=== PATIENT | female | born 1960 | race Caucasian/White ===

== ENCOUNTER → 2018-12-10 10:47 | Outpatient (CLI) | payer OTHER, SELFPAY ==
[2018-12-10 09:47] VITALS: BMI 29.0
[2018-12-10 12:44] LABS: Microalbumin:Creatinine Ratio 10.2 mg/g CRE (<30 mg/g CRE)
== END ==
PROVIDERS: Family Provider Internal Medicine; PCP Internal Medicine; Visit Provider Internal Medicine
DX: E11.9 Type 2 diabetes mellitus without complications (principal)
CPT/HCPCS: 82043; 82570

== ENCOUNTER → 2019-01-11 07:07 | Outpatient (CLI) | payer OTHER, SELFPAY ==
[2018-12-10 09:47] VITALS: BMI 29.0
[2019-01-07 08:29] VITALS: BMI 29.0
--- NOTE | 2019-01-11 07:22 | BI_ITS ---
MAMMOGRAPHY - BILATERAL SCREENING 3-D KATIE SYNTHESIS REASON FOR EXAM: Female, 58 years old. Bilateral Screening 3-D tomosynthesis PERTINENT HISTORY: History of left excisional biopsy in 2007. History of the left breast aspiration. History of stereotactic biopsy. TECHNIQUE: 2-D mammograms and 3-D Katie synthesis of the breast (s) were performed. CAD was performed. COMPARISON: October 25, 2017, October 19, 2016 FINDINGS: The breast composition is composed of scattered fibroglandular density. Scattered benign calcifications are stable. No dense spiculated masses or suspicious microcalcifications are identified. No architectural distortion is identified. There is no skin thickening or retraction. There has been no significant change since the prior study. BI/SCREENING MAMM (CAD), BILAT IMPRESSION: No mammographic signs of malignancy. Routine yearly mammograms recommended. ASSESSMENT CATEGORY: BIRADS Category 2: Benign. A letter regarding these results will be sent to the patient by the facility within 30 days. FOLLOW UP RECOMMENDATION: Yearly follow up mammogram recommended. (A) Approximately 10% of breast cancers are not detected by mammography. A normal mammogram should not delay biopsy of a clinically suspicious abnormality. Electronically Signed: Juan M Terrazas MD at 17:27 EDT , Service support ,
== END ==
PROVIDERS: Family Provider Internal Medicine; PCP Internal Medicine; Referring Provider Internal Medicine; Visit Provider Internal Medicine
DX: Z12.31 Encounter for screening mammogram for malignant neoplasm of breast (principal)
CPT/HCPCS: 77063; 77067

== ENCOUNTER 2019-01-15 10:19 | Outpatient (RCR) | payer OTHER, SELFPAY ==
[2018-12-10 09:47] VITALS: BMI 29.0
[2019-01-07 08:29] VITALS: BMI 29.0
== END 2019-01-20 23:59 ==
LOC: DC 10:19
PROVIDERS: Family Provider Internal Medicine; PCP Internal Medicine; Visit Provider Internal Medicine
DX: E11.9 Type 2 diabetes mellitus without complications (principal); Z71.3 Dietary counseling and surveillance
CPT/HCPCS: 97802

== ENCOUNTER 2019-01-31 08:00 | Outpatient (RCR) | payer OTHER, SELFPAY ==
[2019-01-07 08:29] VITALS: BMI 29.0
== END 2019-02-19 23:59 ==
LOC: DC 08:00
PROVIDERS: Family Provider Internal Medicine; PCP Internal Medicine; Visit Provider Internal Medicine
DX: E11.9 Type 2 diabetes mellitus without complications (principal); Z71.3 Dietary counseling and surveillance
CPT/HCPCS: 97803; G0108

== ENCOUNTER 2019-03-05 12:57 | Outpatient (RCR) | payer OTHER, SELFPAY ==
[2019-01-07 08:29] VITALS: BMI 29.0
[2019-02-21 16:53] VITALS: BMI 29.0
== END 2019-03-22 23:59 ==
LOC: DC 12:57
PROVIDERS: Family Provider Internal Medicine; PCP Internal Medicine; Visit Provider Internal Medicine
DX: E11.9 Type 2 diabetes mellitus without complications (principal); Z71.3 Dietary counseling and surveillance
CPT/HCPCS: 97803

== ENCOUNTER 2019-04-16 17:06 | Outpatient (RCR) | payer OTHER, SELFPAY ==
[2019-02-21 16:53] VITALS: BMI 29.0
== END 2019-04-21 23:59 ==
LOC: DC 17:06
PROVIDERS: Family Provider Internal Medicine; PCP Internal Medicine; Visit Provider Internal Medicine
DX: E11.9 Type 2 diabetes mellitus without complications (principal); Z71.3 Dietary counseling and surveillance
CPT/HCPCS: 97803

== ENCOUNTER 2019-05-23 13:25 | Outpatient (RCR) | payer OTHER, SELFPAY ==
[2019-02-21 16:53] VITALS: BMI 29.0
[2019-05-02 13:03] VITALS: BMI 29.0
== END 2019-05-23 23:59 | disposition home or self-care (01) ==
LOC: DC 13:25
PROVIDERS: Family Provider Internal Medicine; PCP Internal Medicine; Visit Provider Internal Medicine
DX: E11.9 Type 2 diabetes mellitus without complications (principal); Z71.3 Dietary counseling and surveillance
CPT/HCPCS: G0109

== ENCOUNTER → 2019-05-28 12:04 | Outpatient (CLI) | payer OTHER, SELFPAY ==
[2019-05-27 13:40] VITALS: BMI 29.0
[2019-05-28 12:09] LABS: Mucous, Urine 0 SEEN /hpf (<or=2+); Red Blood Cells-Urine 0 SEEN /hpf (0-5)
[2019-05-28 12:15] LABS: Color, Urine Straw (Yellow); Glucose, Dipstick Normal (Normal); Ketone-Dipstick Negative (Negative); Leukocyte Esterase-Dipstick 500 /ul (Negative); Nitrite-Dipstick Negative (Negative); Occult Blood-Urine 25 /ul (Negative); Protein-Dipstick 100 mg/dl (Negative); Specific Gravity, Urine 1.015 (1.002-1.030); Urine Bilirubin Dipstick Negative (Negative); Urine Clarity Sl. Cloudy (Clear); Urine Urobilinogen Normal (Normal); Urine pH 6.5 (5.0 - 8.0)
[2019-05-28 12:26] LABS: Bacteria 2+ /hpf (None Seen); Squamous Epithelial Cells - UA 0-5 SEEN /hpf (5-10); White Blood Cells 0-5 SEEN /hpf (0-5)
== END ==
PROVIDERS: Family Provider Internal Medicine; PCP Internal Medicine; Referring Provider Internal Medicine; Visit Provider Internal Medicine
DX: N39.0 Urinary tract infection, site not specified (principal); R10.819 Abdominal tenderness, unspecified site
CPT/HCPCS: 81001; 87086

== ENCOUNTER → 2019-11-27 16:32 | Outpatient (CLI) | payer OTHER, SELFPAY ==
[2019-11-27 13:24] VITALS: BMI 29.0
== END ==
PROVIDERS: PCP Internal Medicine; Referring Provider Nurse Practitioner Women's Health; Visit Provider Nurse Practitioner Women's Health
DX: N89.8 Other specified noninflammatory disorders of vagina (principal)
CPT/HCPCS: 87070; 87205

== ENCOUNTER → 2019-12-02 09:20 | Outpatient (CLI) | payer OTHER, SELFPAY ==
[2019-12-02 08:58] VITALS: BMI 22.2
[2019-12-02 12:16] LABS: Absolute Lymphocyte Count 1.43 X10^3/uL (0.83-4.51); Absolute Neutrophil Count 2.7 X10^3/uL (2.0-7.7); Basophil# 0.03 X10^3/uL; Basophil% 0.7 % (0-1); Eosinophil# 0.09 X10^3/uL; Hematocrit 43.7 % (37-47); Hemoglobin 14.3 g/dL (12.0-15.0); Lymphocyte # 1.43 X10^3/ul (4.0); Lymphocyte % 31.6 % (19-41); Mean Corp Hgb Conc 32.7 g/dL (32-36); Mean Corpuscular Hgb 29.2 pg (27.0-32.0); Mean Corpuscular Volume 89.4 fL (81-99); Mean Platelet Vol. 11.8 fl (6.2-12.0); Monocyte# 0.31 X10^3/uL; Monocyte% 6.8 % (0-10); NRBC Flagged by Analyzer 0 % (0-5); Neutrophil # 2.66 X10^3/uL (2.7-7.7); Neutrophil % 58.7 % (47-70); Platelet Count 171 K/mm3 (150-450); RBC Distribution Width CV 12.6 % (11.6-14.6); RBC Distribution Width SD 41.1 fl (35.1-43.9); Red Blood Count 4.89 M/mm3 (4.2-5.4); White Blood Count 4.5 K/mm3 (4.4-11.0)
[2019-12-02 12:28] LABS: ALB/GLOB Ratio 1.2 RATIO (0.9-2.4); AST(SGOT) 15 U/L (15-37); Alanine Aminotransfer ALT/SGPT 27 U/L (13-56); Alkaline Phosphatase 86 U/L (45-117); Anion Gap 6 (5-15); BUN 24 mg/dL (7-18); BUN/Creat Ratio 27.5 RATIO (10-20); Calcium,Total 9.5 mg/dL (8.5-10.1); Chloride 105 mmol/L (98-107); Cholesterol 198 mg/dL (200); Creatinine, Serum 0.87 mg/dL (0.55-1.02); EST Glomerular Filtration Rate 70 mL/min (>60); Est Glom Filt Rate - Afr Amer 85 mL/min (>60); Globulin 3.2 g/dL (2.2-4.2); Glucose 88 mg/dL (74-106); High Density Lipoprotein 74 mg/dL; Potassium 3.9 mmol/L (3.5-5.1); Protein, Total 7.2 g/dL (6.4-8.2); Sodium Level 140 mmol/L (136-145); Triglycerides 120 mg/dL; Very Low Density Lipoprotein 24 mg/dL (5-40)
== END ==
PROVIDERS: PCP Internal Medicine; Referring Provider Internal Medicine; Visit Provider Internal Medicine
DX: E11.9 Type 2 diabetes mellitus without complications (principal)
CPT/HCPCS: 36415; 80053; 80061; 85025

== ENCOUNTER → 2020-05-25 08:39 | Outpatient (CLI) | payer OTHER, SELFPAY ==
[2019-11-27 13:24] VITALS: BMI 29.0
[2020-03-12 14:38] VITALS: BMI 29.0
--- NOTE | 2020-05-25 08:41 | BI_ITS ---
MAMMOGRAPHY - BILATERAL SCREENING REASON FOR EXAM: Female, 60 years old. Routine annual screening examination. PERTINENT HISTORY: Aunt with breast cancer. Remote left stereotactic and left excisional breast biopsy. TECHNIQUE: Digital bilateral breast katie (3D mammographic acquisition) in the CC and MLO projections. 2-D mediolateral oblique (MLO) and craniocaudad (CC) views of both breasts were obtained. CAD: Full Field Digital Mammography with Computer Added Detection was performed. COMPARISON: Comparison is made with prior examination 01/11/2019 and 10/25/2017. FINDINGS: Breast Composition: The breasts are heterogeneously dense, which may obscure small masses. There are no dominant masses or suspicious calcifications. No other significant abnormalities are identified. There has been no significant change since the prior study. BI/SCREEN MAMM (CAD) W/KATIE BILAT IMPRESSION: Stable bilateral screening mammogram. Yearly follow-up mammogram recommended. (A) ASSESSMENT CATEGORY: BIRADS Category 1: Negative. A letter regarding these results will be sent to the patient by the facility within 30 days. Approximately 10% of breast cancers are not detected by mammography. A normal mammogram should not delay biopsy of a clinically suspicious abnormality. [id number] Electronically Signed: Taj Dhaliwal, at 10:13 EDT , Service support ,
== END ==
LOC: OPBI 08:41
PROVIDERS: PCP Internal Medicine; Referring Provider Nurse Practitioner Women's Health; Visit Provider Nurse Practitioner Women's Health
DX: Z12.31 Encounter for screening mammogram for malignant neoplasm of breast (principal)
CPT/HCPCS: 77063; 77067

== ENCOUNTER → 2020-07-17 16:54 | Outpatient (CLI) | payer OTHER, SELFPAY ==
[2020-07-17 13:05] VITALS: BMI 29.0
== END ==
PROVIDERS: PCP Internal Medicine; Referring Provider Obstetrics & Gynecology; Visit Provider Obstetrics & Gynecology
DX: R39.15 Urgency of urination (principal); N98.9 Complication associated with artificial fertilization, unspecified
CPT/HCPCS: 87070; 87086; 87205

== ENCOUNTER 2021-12-28 07:05 | Outpatient (CLI) | payer OTHER, SELFPAY ==
--- NOTE | 2021-12-28 07:08 | BI_ITS ---
MAMMOGRAPHY - BILATERAL SCREENING REASON FOR EXAM: Female, 61 years old. Routine annual screening examination. PERTINENT HISTORY: Aunt with breast cancer. Remote left excisional breast biopsy and left stereotactic breast biopsy. TECHNIQUE: Digital bilateral breast katie (3D mammographic acquisition) in the CC and MLO projections. 2-D mediolateral oblique (MLO) and craniocaudad (CC) views of both breasts were obtained. CAD: Full Field Digital Mammography with Computer Added Detection was performed. COMPARISON: Comparison is made with prior study 05/25/2020 and 01/11/2019. FINDINGS: Breast Composition: The breasts are heterogeneously dense, which may obscure small masses. There are no dominant masses or suspicious calcifications. No other significant abnormalities are identified. There has been no significant change since the prior study. BI/SCRN MAMM (CAD)W/KATIE BILAT IMPRESSION: Stable bilateral screening mammogram. Yearly follow-up mammogram recommended. (A) ASSESSMENT CATEGORY: BIRADS Category 1: Negative. A letter regarding these results will be sent to the patient by the facility within 30 days. Approximately 10% of breast cancers are not detected by mammography. A normal mammogram should not delay biopsy of a clinically suspicious abnormality. [id number] Electronically Signed: Taj Dhaliwal MD at 8:10 EST ,
== END 2021-12-28 23:59 | disposition home or self-care (01) ==
LOC: OPBI 07:06
PROVIDERS: PCP Internal Medicine; Visit Provider Internal Medicine
DX: Z12.31 Encounter for screening mammogram for malignant neoplasm of breast (principal)
CPT/HCPCS: 77063; 77067

== ENCOUNTER 2022-01-19 05:24 | Day surgery (SDC) | payer OTHER, SELFPAY ==
[2022-01-19 06:00] VITALS: BP 96/73; PULSE 74; RESP 16; TEMP 36.8; O2SAT 100; BMI 23.3
[2022-01-19] MEDS: Lactated Ringers 1,000 ML 15 ML IV (06:10)
--- NOTE | 2022-01-19 06:31 | PCM.HP.BLA ---
History and Physical Date of Admission: 01/19/22 HPI Chief Complaint: Follow-up chronic medical conditions Details: ABBY DARBY, is a 61 F who presents today for a surveillance colonoscopy. She has had 2 other colonoscopies in the past and she has had adenomatous polyps found previously and removed. She is not having any abdominal pain at this time. She is not having any nausea, vomiting, diarrhea. She is not having any chest pain or shortness of breath. She has no bleeding per rectum. Overall she is in a good state of health. Medical History Colon cancer screening Diabetes type 2, controlled Health care maintenance History of hemorrhoids History of kidney stones Hyperlipidemia Normal colonoscopy Surgical History History of appendectomy History of breast biopsy History of orthopedic surgery Family History Father Myocardial infarction Mother Myocardial infarction, Onset Age: 67 Brother Myocardial infarction, Onset Age: 45 Aunt Cancer Grandfather Diabetes HPI HPI Chief Complaint: Follow-up chronic medical conditions Details: ABBY DARBY, is a 61 F who presents to the office today for follow-up of her chronic medical conditions. No acute concerns at this time. History of diabetes mellitus type 2, recently had blood work done at work and her A1c came up from 5.7-5.9. Currently on Metformin which she reports compliance with. She states that she knows she can do better with her diet. Denies numbness or tingling in extremities. No visual changes. Last colon cancer screening over 5 years ago and a 5-year follow-up was recommended due to polyps. She denies weight changes or dark or bloody stool. Mammogram is also due. Menopause was at age 56, no known family history of osteoporosis. No recent fractures. Has received her flu and Covid vaccines. ROS Const Constitutional: No body ache, chills, excessive sweating, fatigue, fever(s), frequent falls, headache(s), snoring, weakness, weight change, sleep problems or change in appetite Eyes Eyes: No blurry vision, change in vision, eye pain or Light sensitivity ENT ENT: No abnormal hearing, ear or mastoid pain, tinnitus, nasal congestion, headache(s), neck pain or sore throat Resp Respiratory: No cough, shortness of breath, snoring or wheezing Cardio Cardiology: No chest pain at rest, chest pain with exertion, excessive sweating, shortness of breath, dyspnea on exertion, lightheadedness, orthopnea or palpitations Gastro GI: No abdominal pain, change in bowel habits, constipation, cramping, diarrhea, nausea/dyspepsia or vomiting Genitourinary-Female: No burning urination, painful urination, urinary incontinence, urinary frequency, abnormal vaginal bleeding or pelvic pain Musc Musculoskeletal: No abnormal gait, joint pain, back pain, limited range of motion, muscle weakness, neck pain, numbness or tingling Skin Skin: No dry skin, redness, lesions, itchy eyes, rash or wounds Neuro Neurology: No abnormal gait, abnormal hearing, abnormal speech, dizziness, weakness, frequent falls, headache(s), memory loss, numbness or tingling Psych Psychiatric: No anxiety, No change in appetite, No depression, No memory loss and No Thoughts of harming yourself/Others Endo Endocrine: No cold intolerance, excessive sweating, fatigue, flushing, heat intolerance, increased thirst/drinking or increased hunger Aller/Imm Allergy/Immunologic: No itchy eyes, seasonal allergy symptoms, hives or wheezing Rodriguez/Lymp Hematologic/Lymphatic: No easy bleeding, easy bruising or enlarged lymph nodes Exam Const General: cooperative, comfortable and no acute distress Orientation: alert, awake and oriented x3 [facility] Head: normal to inspection, normocephalic and atraumatic Ears: hearing grossly normal bilaterally Neck Neck: normal visual inspection, full ROM, no lymphadenopathy and supple Neck mass: No Thyroid: thyroid normal Resp Effort & Inspection: normal respiratory effort and able to speak in complete sentences Auscultation: Bilateral: Clear to Auscultation Cardio Rate: regular rate Rhythm: regular rhythm Heart Sounds: S1 normal and S2 normal GI Palpation: soft (Nontender, no palpable organomegaly) Neuro General: patient alert, patient awake, patient oriented x3, moves all extremities and CN's II-XI intact bilaterally Extrem General: no clubbing, cyanosis or edema Psych Appearance: grossly normal Mental Status: mental status grossly normal Mood: congruent mood Affect: normal affect Assessment and Plan (1) surveillance colonoscopy. She will undergo colonoscopy for her history of adenomatous polyps. She was explained alternatives, risk, benefits including not withstanding bleeding, infection, sepsis, perforation, need for emergent . She will have an ASA of 1.
[2022-01-19 07:01] VITALS: BP 101/67; BP 96/73; PULSE 70; RESP 16; TEMP 36.2; O2SAT 100
--- NOTE | 2022-01-19 07:01 | OP.COLON_ITS ---
Patient Name: Venice Hdez Procedure Date: 01/19/2022 6:19 AM Date of : 1960 Age: 61 Procedure: Colonoscopy Indications: Follow-up for history of adenomatous polyps in the colon Providers: George Romano DO Medicines: See the Anesthesia note for documentation of the administered medications Patient Profile: This is a 61 year old female. Refer to note in patient chart for documentation of history and physical. Last Colonoscopy: 5 years ago. Complications: No immediate complications. Procedure: Pre-Anesthesia Assessment: - Prior to the procedure, a History and Physical was performed, and patient medications and allergies were reviewed. The risks and benefits of the procedure and the sedation options and risks were discussed with the patient. All questions were answered and informed consent was obtained. Patient identification and proposed procedure were verified by the physician in the pre-procedure area. Mental Status Examination: alert and oriented. Airway Examination: normal oropharyngeal airway and neck mobility. Respiratory Examination: clear to auscultation. CV Examination: normal. Prophylactic Antibiotics: The patient does not require prophylactic antibiotics. Prior Anticoagulants: The patient has taken no previous anticoagulant or antiplatelet agents. ASA Grade Assessment: II - A patient with mild systemic disease. After reviewing the risks and benefits, the patient was deemed in satisfactory condition to undergo the procedure. The anesthesia plan was to use moderate sedation / analgesia (conscious sedation). Immediately prior to administration of medications, the patient was re-assessed for adequacy to receive sedatives. The heart rate, respiratory rate, oxygen saturations, blood pressure, adequacy of pulmonary ventilation, and response to care were monitored throughout the procedure. The physical status of the patient was re-assessed after the procedure. After I obtained informed consent, the scope was passed under direct vision. Throughout the procedure, the patient's blood pressure, pulse, and oxygen saturations were monitored continuously. The Colonoscope was introduced through the anus and advanced to the cecum, identified by appendiceal orifice and ileocecal valve. The colonoscopy was performed without difficulty. The patient tolerated the procedure well. The quality of the bowel preparation was good. Moderate Sedation: Moderate (conscious) sedation was administered by the endoscopy nurse and supervised by the endoscopist. The patient's oxygen saturation, heart rate, blood pressure and response to care were monitored. Total physician intraservice time was 15 minutes. Scope In: 6:40:14 AM Scope Withdrawal Time 0 hours 11 minutes 19 seconds Scope Out: 6:55:54 AM Total Procedure Duration Time 0 hours 15 minutes 40 seconds Findings: The perianal and digital rectal examinations were normal. A few small-mouthed diverticula were found in the recto-sigmoid colon and sigmoid colon. The exam was otherwise without abnormality on direct and retroflexion views. Impression: - Diverticulosis in the recto-sigmoid colon and in the sigmoid colon. - The examination was otherwise normal on direct and retroflexion views. - No specimens collected. Recommendation: - Discharge patient to home. - Resume previous diet. - Continue present medications. -Repeat colonoscopy in 5 years - Repeat colonoscopy in 5 years for surveillance. Procedure Code(s): --- Professional --- 58744, Colonoscopy, flexible; diagnostic, including collection of specimen(s) by brushing or washing, when performed (separate procedure) 03693, 58, Moderate sedation services provided by the same physician or other qualified health career development specialist performing the diagnostic or therapeutic service that the sedation supports, requiring the presence of an independent trained observer to assist in the monitoring of the patient's level of consciousness and physiological status; initial 15 minutes of intraservice time, patient age 5 years or older CPT copyright 2017 [employer]. All rights reserved. The codes documented in this report are preliminary and upon computer language coder review may be revised to meet current compliance requirements. George Romano DO 01/19/2022 7:01:24 AM This report has been signed electronically. Number of Addenda: 1 Note Initiated On: 01/19/2022 6:19 AM Addendum Number: 1 Addendum Date: 07/20/2022 6:17:34 AM MAC was used as sedation for this procedure. George Romano DO 07/20/2022 6:17:39 AM This report has been signed electronically.
--- NOTE | 2022-01-19 07:02 | OP.CCLET_ITS ---
07/20/2022 Jessica Gage MD [address] [place] [address] [place] [address] Re : Colonoscopy procedure for Venice Hdez Dear Dr. Gage This procedure was performed on Wednesday, January 19, 2022. My impressions and recommendations are as follows: Impressions : - Diverticulosis in the recto-sigmoid colon and in the sigmoid colon. - The examination was otherwise normal on direct and retroflexion views. - No specimens collected. Recommendations : - Discharge patient to home. - Resume previous diet. - Continue present medications. -Repeat colonoscopy in 5 years - Repeat colonoscopy in 5 years for surveillance. My findings are described in the full procedure note, which is enclosed. If I can be of further assistance, please feel free to contact me at . Sincerely, George Romano, 01/19/2022 7:01:24 AM This report has been signed electronically.
[2022-01-19 07:05] VITALS: BP 105/66; BP 96/73; PULSE 67; RESP 16; O2SAT 100
[2022-01-19 07:11] VITALS: BP 105/68; BP 96/73; PULSE 63; RESP 16; O2SAT 100
[2022-01-19 07:11] LABS: Bedside Glucose 84 mg/dL (74-106)
[2022-01-19 07:16] VITALS: BP 105/68; BP 96/73; PULSE 62; RESP 16; TEMP 36.7; O2SAT 100
[2022-01-19 07:29] VITALS: BP 96/73
== END 2022-01-19 23:59 | disposition home or self-care (01) ==
LOC: EN 05:26 → AC 05:26
PROVIDERS: PCP Internal Medicine; Referring Provider Internal Medicine; Visit Provider Internal Medicine Gastroenterology
PROC: 0DJD8ZZ Inspection of Lower Intestinal Tract, Via Natural or Artificial Opening Endoscopic (ICD-10-PCS; CPT 45378; principal; 2022-01-19 06:25)
DX: Z12.11 Encounter for screening for malignant neoplasm of colon (principal); E11.9 Type 2 diabetes mellitus without complications; K57.30 Diverticulosis of large intestine without perforation or abscess without bleeding; Z79.84 Long term (current) use of oral hypoglycemic drugs; Z86.010 Personal history of colon polyps; Z78.0 Asymptomatic menopausal state
CPT/HCPCS: 45378; 82962; J7120

== ENCOUNTER → 2022-10-19 | Outpatient (CLI) | payer SELFPAY ==
--- NOTE | 2022-10-19 11:21 | BD_ITS ---
STUDY: DUAL ENERGY X-RAY ABSORPTIOMETRY / DXA REASON FOR EXAM: Female, 62 years old. Post Menopausal TECHNIQUE: Bone Mineral Density (BMD) measurements of lumbar spine and bilateral hips were obtained. COMPARISON: None. FINDINGS: Lumbar Spine (L1-L4): g/cm2 (0.750) / T-score (-2.7) / Z-score (-1.0) Findings are suggestive of osteoporosis with a high fracture risk. Left Femur Total: g/cm2 (0.736) / T-score (-1.7) / Z-score (-0.6) Left Femoral Neck: g/cm2 (0.687) / T-score (-1.5) / Z-score (0.0) Right Femur Total: g/cm2 (0.722) / T-score (-1.8) / Z-score (-0.7) Right Femoral Neck: g/cm2 (0.649) / T-score (-1.8) / Z-score (-0.4) BD/Dexa Bone Density Study IMPRESSION: The patient is considered osteoporotic as outlined below according to World Randall Organization (WHO) criteria with a high fracture risk. Reference Information: The T-score is the number of standard deviations above or below the standard which is normal for young adults at their peak bone mineral density. The World Health Organization (WHO) interprets the T-scores as follows: Above -1 Normal bone density Between -1 and -2.5 Osteopenia Equal to / or below -2.5 Osteoporosis As a practical clinical guideline, osteopenia may be graded as follows: Mild -1 through -1.5 Moderate -1.6 through -2.0 Severe -2.1 through -2.4 The Z-score is the number of standard deviations above or below age-matched controls. A Z-score of less than -1.5 would be considered abnormal. References: 1. NIH Osteoporosis and Related Bone Diseases www osteo.org 2. International Society for Clinical Densitometry www iscd.org 3. National Osteoporosis Foundation www nof.org Electronically Signed: Taj Dhaliwal MD at 15:26 EST ,
== END | disposition home or self-care (01) ==
PROVIDERS: PCP Internal Medicine; Referring Provider Internal Medicine; Visit Provider Internal Medicine
DX: Z78.0 Asymptomatic menopausal state (principal); M81.0 Age-related osteoporosis without current pathological fracture
CPT/HCPCS: 77080

== ENCOUNTER → 2023-03-29 | Outpatient (CLI) | payer OTHER, SELFPAY ==
--- NOTE | 2023-03-29 14:41 | BI_ITS ---
MAMMOGRAPHY - BILATERAL SCREENING REASON FOR EXAM: Female, 62 years old. Routine annual screening examination. PERTINENT HISTORY: Sister with breast cancer. Prior left excisional breast biopsy. Aunt with breast cancer. TECHNIQUE: Digital bilateral breast katie (3D mammographic acquisition) in the CC and MLO projections. 2-D mediolateral oblique (MLO) and craniocaudad (CC) views of both breasts were obtained. CAD: Full Field Digital Mammography with Computer Added Detection was performed. COMPARISON: Comparison is made with prior study December 28, 2021 and May 25, 2020. FINDINGS: Breast Composition: The breasts are heterogeneously dense, which may obscure small masses. There are no dominant masses or suspicious calcifications. No other significant abnormalities are identified. There has been no significant change since the prior study. BI/SCRN MAMM (CAD)W/KATIE BILAT IMPRESSION: Stable bilateral screening mammogram. Yearly follow-up mammogram recommended. (A) ASSESSMENT CATEGORY: BIRADS Category 1: Negative. A letter regarding these results will be sent to the patient by the facility within 30 days. Approximately 10% of breast cancers are not detected by mammography. A normal mammogram should not delay biopsy of a clinically suspicious abnormality. [id number] Electronically Signed: Taj Dhaliwal MD at 8:17 EDT ,
== END | disposition home or self-care (01) ==
LOC: OPBI 14:39
PROVIDERS: PCP Internal Medicine; Referring Provider Internal Medicine; Visit Provider Internal Medicine
DX: Z12.31 Encounter for screening mammogram for malignant neoplasm of breast (principal)
CPT/HCPCS: 77063; 77067

== ENCOUNTER → 2023-04-06 | Outpatient (CLI) | payer OTHER, SELFPAY ==
--- NOTE | 2023-04-06 08:46 | US_ITS ---
STUDY: ABDOMINAL ULTRASOUND - RIGHT UPPER QUADRANT REASON FOR VISIT: Female, 62 years old. RUQ pain. TECHNIQUE: Ultrasound evaluation of the right upper quadrant was performed with real-time and static colbert-scale imaging. TECHNICAL QUALITY: Adequate. COMPARISON: CT the abdomen pelvis, November 16, 2015. FINDINGS: Liver: The liver measures 15.2 cm. There is normal echogenicity of the liver. The bile ducts are within normal limits. There is hepatic color flow. The direction of portal flow is hepatopetal. There is no demonstrated mass lesion. Gallbladder: Normal distended gallbladder. The gallbladder wall measures 2 mm. There is a negative sonographic Ventura''s sign. There is no pericholecystic fluid. There are no gallstones. Common Bile Duct (C.B.D.): The common bile duct measures 5 mm. Pancreas: Normal size of the head, body and tail of the pancreas. There is normal echogenicity of the pancreas. There is no demonstrated pancreatic mass or cyst. Right Kidney: Normal size of the right kidney. The right kidney measures 10.1 cm. Normal renal cortex. The right cortex measures 1.2 cm. There is no demonstrated renal mass or cyst. Question 6 mm calcification lower pole calyx. This correlates with a small calcification seen in this position on the CT scan. There is no right hydronephrosis. US/Abdomen Limited IMPRESSION: 1. Stable right renal calculus. The examination is otherwise unremarkable Electronically Signed: Landry Gerardo DO at 17:18 EDT ,
== END | disposition home or self-care (01) ==
PROVIDERS: PCP Internal Medicine; Referring Provider Internal Medicine; Visit Provider Internal Medicine
DX: R10.11 Right upper quadrant pain (principal)
CPT/HCPCS: 76705

== ENCOUNTER → 2023-08-30 | Outpatient (CLI) | payer OTHER, SELFPAY ==
[2023-08-30 11:12] LABS: Vitamin D,25 Hydroxy 43.2 ng/mL
[2023-08-30 11:38] LABS: NATERA MAILED SPECIMEN
[2023-09-04 18:07] LABS: HPV APTIMA, High Risk Negative (Negative)
== END | disposition home or self-care (01) ==
PROVIDERS: PCP Internal Medicine; Referring Provider Nurse Practitioner Women's Health; Visit Provider Nurse Practitioner Women's Health
DX: Z12.4 Encounter for screening for malignant neoplasm of cervix (principal)
CPT/HCPCS: 36415; 82306; 87624; 88175; G0145

== ENCOUNTER → 2023-12-26 | Outpatient (CLI) | payer OTHER, SELFPAY ==
--- NOTE | 2023-12-26 09:50 | NM_ITS ---
CLINICAL: 63-year-old female with history of right upper quadrant abdominal pain. RADIONUCLIDE HEPATOBILIARY SCINTIGRAPHY COMPARISON: None available FINDINGS: Following the intravenous administration of 5.1 mCi of 99m Tc Mebrofenin, hepatobiliary images reveal: 1. Relatively prompt and homogeneous radiopharmaceutical concentration is noted by a normal sized liver. No parenchymal defects are identified. 2. Gallbladder activity is identified at 15 minutes post radiopharmaceutical administration. 3. Small intestinal tract is not visualized during 60 minutes of pre-CCK sequential imaging. Small bowel activity is identified following the administration of cholecystokinin. 4. Washout of the radiopharmaceutical by the hepatic parenchyma appears qualitatively normal. Cholecystokinin (0.02 ug/kg) was administered intravenously over a 30-minute period. The post CCK gallbladder ejection fraction calculated at 20, 28 minutes following Cholecystokinin administration was noted to be < 5 % (normal greater than 35%). NM/Hepatobilliary Img w/Pharm Int IMPRESSION: 1. ABNORMAL 99m Tc Mebrofenin hepatobiliary imaging examination with Cholecystokinin. A. A gallbladder ejection fraction calculated to be less than 35% following the administration of Cholecystokinin is consistent with the presence of functional hepatobiliary disease (gallbladder and/or sphincter of Oddi dyskinesia) and/or organic hepatobiliary disease (chronic acalculous cholecystitis and/or cystic duct syndrome) in patients with intermediate to high pretest likelihoods of hepatobiliary illness. (Ingrid Vu et al, Journal of Nuclear Medicine 32:1695, 1991). Electronically Signed: Joon Pulido DO at 9:27 EST ,
--- OUTSIDE RECORDS SUMMARY | 2023-12-26 10:20 | XMS RPT_ITS | CCD ---
Author Name Unknown Address [address] [place] [address] Organization [facility] Care Team Providers Care Front Desk Name Role Phone Yelena Clemens MD Unavailable Allergies Allergy Classification Reported Allergen(s) Allergy Type Date of Onset Reaction(s) Facility (3 sources) ciprofloxacin Drug Allergy 7 [facility] [place] Problems Active Problems Problem Classification Problem Date Documented Date Episodic/Chronic Unclassified (3 sources) Screening for malignant neoplasm of cervix ; Translations: [Encounter for screening for malignant neoplasm of cervix] Onset: 09-11-2017 09-11-2017 Unclassified (3 sources) Screening mammography ; Translations: [Encounter for screening mammogram for malignant neoplasm of breast] Onset: 09-11-2017 09-11-2017 Unclassified (3 sources) Gynecologic examination ; Translations: [Encounter for gynecological examination (general) (routine) without abnormal findings] Onset: 09-11-2017 09-11-2017 Past or Other Problems Problem Classification Problem Date Documented Date Episodic/Chronic Immunizations and screening for infectious disease (3 sources) Encounter for screening for human papillomavirus (HPV); Translations: [Encounter for screening for human papillomavirus (HPV)] Onset: 09-11-2017 09-11-2017 Episodic Results Test Name Value Interpretation Reference Range Facil ity Vital Signs Date Time Vital Sign Value Performing Clinician Oliver watkins 09-11-2017 09:43-0500 BMI (Body Mass Index) 28.72 kg/m2 Yelena Clemens MD [facility] [place] 09-11-2017 09:43-0500 BP Diastolic 76 mm[Hg] Yelena Clemens MD [facility] 09-11-2017 09:43-0500 BP Systolic 128 mm[Hg] Yelena Clemens MD [facility] 09-11-2017 09:43-0500 Height 170.18 cm Yelena Clemens MD [facility] 09-11-2017 09:43-0500 Weight 83.19 kg Yelena Clemens MD [facility] Procedures Date Procedure Procedure Detail Performing Clinician Start: 09-11-2017 End: 09-15-2017 Mammogram, screening Yelena roberson MD Work Phone: Plan of Treatment Date Care Activity Detail Author Start: 09-11-2017 End: 09-15-2017 Mammogram, screening Mammogram, Screening, both breasts [facility] Start: 09-11-2017 End: 09-11-2017 Appointment Appointment [facility] Additional Source Comments FOR RECORDS PERTAINING TO PATIENTS WHO ARE OR HAVE BEEN ENROLLED IN A CHEMICAL DEPENDENCY/SUBSTANCEABUSE PROGRAM, SOME INFORMATION MAY BE OMITTED. This clinical summary was aggregated from multiple sources. Caution should be exercised in using it in the provision of clinical care. This summary normalizes information from multiple sources, and as a consequence, information in this document may materially change the coding, format and clinical context of patient data. In addition, data may be omitted in some cases. CLINICAL DECISIONS SHOULD BE BASED ON THE PRIMARY CLINICAL RECORDS. [facility] [employer] [facility]. provides no warranty or guarantee of the accuracy or completeness of information in this document.
== END | disposition home or self-care (01) ==
PROVIDERS: PCP Internal Medicine; Referring Provider Internal Medicine; Visit Provider Internal Medicine
DX: R10.11 Right upper quadrant pain (principal)
CPT/HCPCS: 78227; A9537; J2805

== ENCOUNTER 2024-01-16 07:08 | Observation (INO) | payer OTHER, SELFPAY ==
[2024-01-16] VITALS (7 sets, daily range): BP systolic 105–126; BP diastolic 61–86; PULSE 66–78; RESP 16–18; TEMP 36.4–36.9; O2SAT 94–99; BMI 24.0
--- NOTE | 2024-01-16 07:23 | CT_ITS ---
STUDY: CT ABDOMEN AND PELVIS WITHOUT CONTRAST REASON FOR EXAM: Female, 63 years old. Right flank pain RADIATION DOSAGE (If Supplied By Facility): CTDIvol = ( 7.34 ) mGy, DLP = ( 346.66 ) mGycm TECHNIQUE: Transaxial images were obtained from the dome of the diaphragm to the symphysis pubis without oral contrast, and without intravenous contrast. Sagittal and coronal images were reconstructed. Individualized dose optimization techniques were used for this CT. COMPARISON: Comparison is made with prior study dated November 16, 2015. FINDINGS: Mild degree of dependent bibasilar atelectasis. The visualized portions of the heart are within normal limits. Normal liver. Normal gallbladder and extrahepatic biliary system. Normal spleen. Normal pancreas. Normal bilateral adrenal glands. Mild right hydronephrosis and hydroureter due to a 7.2 mm calculus in its distal one third portion. Mild left hydronephrosis. Left parapelvic cysts. Normal visualized stomach. Normal small intestine. There are colonic diverticula consistent with diverticulosis. There are surgical clips in the region of the appendix consistent with a prior appendectomy. There is diffuse atherosclerotic calcification of the abdominal aorta and its major visceral branches, without a demonstrated aneurysm. Normal inferior vena cava. Nonspecific increased markings in the mesenteric fat at the level of the within the mesentery. This is in contact with a tami mesenteric fat. Normal urinary bladder. Normal abdominal wall. There are mild degenerative changes of the visualized lumbar spine. CT/Abdomen/Pelvis without Cont IMPRESSION: Right hydronephrosis and hydroureter due to a 7.2 mm calculus in the distal one third of the ureter. Nonspecific increased markings in the mesenteric fat at the level of the root of the mesentery. Left parapelvic renal cysts. Electronically Signed: Taj Dhaliwal MD at 8:33 EDT ,
--- NOTE | 2024-01-16 07:24 | EDS_ITS ---
HPI History of Present Illness Chief Complaint: Flank Pain Detail of Chief Complaint: Right flank pain Informant: patient Onset/Context/Timing Current Severity: 04/01 Narrative Narrative: Patient presents with right-sided flank pain that started around 10 PM last evening. Patient also noticed some blood in her urine throughout the night. She had pain throughout the night. Today she was having preadmission testing for cholecystectomy to be performed on January 21. Patient states the pain is different than her gallbladder pain and it does radiate from her right back to the groin. She had history of kidney stones and feels similar. She had nausea but no vomiting. She denies fevers. Patient's had prior appendectomy. [facility] Medical History (Updated 01/16/24 @ 08:[address] Mateo Argueta DO) Alcohol use Colon cancer screening Diabetes Diabetes type 2, controlled Dietary restriction Dietary restriction Health care maintenance History of hemorrhoids History of kidney stones History of renal disease Hyperlipidemia Macular hole Non-smoker Normal colonoscopy Osteoporosis Post-menopausal Preoperative evaluation to rule out surgical contraindication Right upper quadrant abdominal pain Wears glasses Home Medications blood sugar diagnostic (Accu-Chek Guide test strips) 11/26/19 [History Last Taken Unknown] multivitamin,rk-zonf-ccaaxedy (Complete Multivitamin tablet) 1 tab PO DAILY 03/12/20 [History Last Taken Unknown] lancets #200 ea 04/23/20 [Rx Last Taken Unknown] blood sugar diagnostic (Accu-Chek Guide test strips) #200 ea 09/19/22 [Rx Last Taken Unknown] calcium carbonate 600 mg-vitamin D3 10 mcg (400 unit) tablet (Calcium 600 + D(3)) 1 tab PO DAILY 03/22/23 [History Last Taken Unknown] flash glucose scanning reader (FreeStyle Suzy 14 Day [place]) #1 ea 09/22/23 [Rx Last Taken Unknown] flash glucose sensor (FreeStyle Suzy 14 Day Sensor kit) #1 ea 09/22/23 [Rx Last Taken Unknown] metformin 500 mg tablet 500 mg PO BID #180 tabs 01/04/24 [Rx Last Taken Unknown] Allergy/AdvReac Type Severity Reaction Status Date / Time ciprofloxacin [From Cipro] Allergy Rash Verified 01/16/24 07:09 ciprofloxacin HCl Allergy Rash Verified 01/16/24 07:09 [From Cipro] Family History Father Myocardial infarction Mother Myocardial infarction, Onset Age: 67 Brother Myocardial infarction, Onset Age: 45 Aunt Cancer Grandfather Diabetes Sister Breast cancer Surgical History (Updated 01/12/24 @ 13:55 by Liliam Bronson) History of appendectomy History of breast biopsy History of eye surgery History of orthopedic surgery History of shoulder surgery Hx of cystoscopy Social History Smoking Status: Never smoker alcohol intake: current alcohol intake frequency: a few times a week Alcohol type: wine substance use type: does not use caffeine: Yes what type of physical activity do you participate in: walking and aerobics frequency: 3-4 times per week seatbelt use: always do you feel safe at home: Yes additional social history: Candie moody [employer] [place] ROS ROS ED Review of Systems ROS Unobtainable: other Constitutional Constitutional ED: Reports lethargy; Denies chills, fever(s), sweats or weight loss Eyes Eyes: Denies blurry vision, change in vision or diplopia ENT ENT ED: Denies rhinorrhea or sore throat Cardiovascular Cardiovascular: Denies chest pain, orthopnea or racing heartbeat Respiratory/Chest Respiratory/Chest: Denies cough, dyspnea, dyspnea on exertion, orthopnea or sputum Gastrointestinal Gastrointestinal: Reports abdominal pain and nausea; Denies diarrhea or vomiting Genitourinary Genitourinary ED: Reports hematuria; Denies dysuria or urinary frequency Musculoskeletal Musculoskeletal: Reports back pain; Denies arthralgias, myalgias or neck pain Integumentary Denies abscess, Abrasions or rash Neurologic Neurologic: Denies headache(s) or weakness Psychiatric Psychiatric: Denies anxiety, depression or suicidal thoughts Endocrine Endocrinology: Denies polydipsia, polyphagia or polyuria Hematologic/Lymphatic Hematologic/Lymphatic: Denies easy bleeding, easy bruising or lymphadenopathy Allergic/Immunologic Allergic/Immunologic ED: Denies mouth swelling, tongue swelling or urticaria EXAM Physical Exam Const Vital Signs: 01/16/24 07:09 Temperature 97.6 F L Temperature Source Temporal Pulse Rate 78 Respiratory Rate 16 Blood Pressure 105/63 Blood Pressure Mean 77 Pulse Ox 99 Oxygen Delivery Method Room Air Positive well nourished and well developed General Appearance ED: well developed and NAD HEENT Reports TM's clear and moist mucous membranes normocephalic and atraumatic; Negative for trauma or tenderness Tympanic Membrane ED: Yes TM's clear Eyes PERRL and EOMs intact bilaterally General Eye ED: Negative for pale conjunctiva or scleral icterus Neck no lymphadenopathy, supple and no JVD General: Negative for tenderness Chest Wall inspection of chest normal and palpation of chest normal Chest: Negative for tenderness Resp normal respiratory effort and clear to auscultation bilaterally Effort and Inspection: Negative for respiratory distress or pain with movement Auscultation: Negative for rhonchi, wheezes or diminished lung sounds Cardio regular rate, regular rhythm, S1 normal heart sound, S2 normal heart sound and no murmurs Peripheral Pulses: pulses 2+ throughout GI normal to inspection, nondistended, normoactive bowel sounds, soft to palpation, non-distended and no masses GI Narrative: Tender to palpation over right lower quadrant with mild guarding. Patient also has CVA tenderness on the right. Back/Spine no thoracic nor lumbar tenderness General Back: CVA tenderness Extremity normal to inspection General Extremety ED: Negative for edema General Extremity: Negative for edema Neuro oriented x3, CN's II-XII intact bilaterally, no sensory deficits noted and gait normal Sensorium / Orientation: awake, alert, oriented to person, oriented to place and oriented to time Motor Exam: strength 5/5 throughout and strength abnormal Psych mental status grossly normal Skin no rashes or lesions noted and no wounds MDM MDM MDM Narrative Medical decision making narrative: Patient presents with right-sided flank and lower abdomen pain that started yesterday. History of kidney stones. IV line established. She was given Toradol because she did not want a thing stronger for pain. CBC with differential obtained showing a 5.7 with hemoglobin 14.2 and platelet count of 184. Chemistries unremarkable. LFTs were unremarkable. Urinalysis positive for blood 25-50 RBCs but no signs of infection. CT scan of the abdomen pelvis showed a 7.2 mm ureteral stone in the distal third of the ureter with hydroureter and hydronephrosis. Case discussed with Dr. Luciano who recommended admission for stenting procedure. Patient in agreement. Lab Data Attestation: I reviewed the patient's lab results. Labs: Laboratory Results - last 24 hr 01/16/24 07:49 WBC 5.7 RBC 4.82 Hgb 14.2 Hct 42.7 MCV 88.6 MCH 29.5 MCHC 33.3 RDW Std Deviation 40.3 RDW Coeff of [place] 12.4 Plt Count 184 MPV 11.0 Immature Gran % (Auto) 0.200 Neut % (Auto) 74.2 H Lymph % (Auto) 19.7 [place] % (Auto) 4.9 Eos % (Auto) 0.5 Baso % (Auto) 0.5 Absolute Neuts (auto) 4.2 Absolute Lymphs (auto) 1.12 Nucleated RBC % 0 Sodium 141 Potassium 3.7 Chloride 107 Carbon Dioxide 26.0 Anion Gap 8 BUN 20 H Creatinine 0.76 Estim Creat Clear Calc 72.72 Est GFR (MDRD) Af Amer 98 Est GFR (MDRD) Non-Af 81 BUN/Creatinine Ratio 26.2 H Glucose 121 H Calcium 9.1 Total Bilirubin 0.50 Direct Bilirubin 0.13 AST 18 ALT 23 Alkaline Phosphatase 94 Total Protein 7.3 Albumin 3.7 Globulin 3.6 Urine Color Red Urine Clarity Cloudy Urine pH 7.0 Ur Specific [place] 1.010 Urine Protein 30 H Urine Glucose (UA) Normal Urine Ketones Negative Urine Occult Blood 250 H Urine Nitrite Negative Urine Bilirubin Negative Urine Urobilinogen Normal Ur Leukocyte Esterase 25 H Urine RBC 25-50 SEEN Urine WBC 0-5 SEEN Ur Squamous Epith Cells 0-5 SEEN Urine Bacteria 0 SEEN Urine Mucus 0 SEEN Radiography Diagnostic Testing: Clinical Impression(s) from Imaging Studies Abdomen/Pelvis CT 01/16/24 07:23 IMPRESSION: Right hydronephrosis and hydroureter due to a 7.2 mm calculus in the distal one third of the ureter. Nonspecific increased markings in the mesenteric fat at the level of the root of the mesentery. Left parapelvic renal cysts. Electronically Signed: Taj Dhaliwal MD at 8:33 EDT , Discharge Plan Triage Chief Complaint: Flank Pain ED Provider: Mateo Argueta Dx/Rx/DC Orders Clinical Impression: Hx of hypercholesterolemia, Flank pain, Urolithiasis Prescriptions: No Action (DME) Accu-Chek Guide test strips Strip See Rx Instructions .ROUTE .MEDSUPPLY Rx Instructions: As directed Twice daily Complete Multivitamin Tablet 1 tab PO DAILY calcium carbonate-vitamin D3 [Calcium 600 + D(3)] 600 mg-10 mcg (400 unit) tablet 1 tab PO DAILY (DME) FreeStyle Suzy 14 Day [place] Misc See Rx Instructions .ROUTE .MEDSUPPLY Qty: 1 0RF Rx Instructions: As directed (DME) FreeStyle Suzy 14 Day Sensor Kit See Rx Instructions .ROUTE .MEDSUPPLY Qty: 1 7RF Rx Instructions: As directed (DME) lancets Misc See Rx Instructions .ROUTE .MEDSUPPLY Qty: 200 4RF Rx Instructions: Uses Accu-Chek guide Drum As directed Twice Daily (DME) Accu-Chek Guide test strips Strip See Rx Instructions .ROUTE .MEDSUPPLY Qty: 200 3RF Rx Instructions: Twice daily metformin 500 mg tablet 500 mg PO BID Qty: 180 1RF Primary Care Provider: Jessica Gage Referrals: Jessica Gage MD [Primary Care Provider] - Disposition Disposition: Acute Care Hospital [facility]
[2024-01-16] MEDS: Ketorolac 15 MG/ML Vial IV (07:45)
[2024-01-16] MEDS: 0.9% Normal Saline (1000mL) 1,000 ML 125 ML IV ×3 (07:46→19:57)
[2024-01-16 08:02] LABS: Bacteria 0 SEEN /hpf (None Seen); Mucous, Urine 0 SEEN /hpf (<or=2+)
[2024-01-16 08:04] LABS: Absolute Lymphocyte Count 1.12 X10^3/uL (0.83-4.51); Absolute Neutrophil Count 4.2 X10^3/uL (2.0-7.7); Basophil# 0.03 X10^3/uL; Basophil% 0.5 % (0-1); Eosinophil# 0.03 X10^3/uL; Eosinophils% 0.5 % (0-5); Hematocrit 42.7 % (37-47); Hemoglobin 14.2 g/dL (12.0-15.0); Lymphocyte # 1.12 X10^3/ul (0.83-4.51); Lymphocyte % 19.7 % (19-41); Mean Corp Hgb Conc 33.3 g/dL (32-36); Mean Corpuscular Hgb 29.5 pg (27.0-32.0); Mean Corpuscular Volume 88.6 fL (81-99); Monocyte# 0.28 X10^3/uL; Monocyte% 4.9 % (0-10); NRBC Flagged by Analyzer 0 % (0-5); Neutrophil # 4.22 X10^3/uL (2.7-7.7); Neutrophil % 74.2 % (47-70); Platelet Count 184 K/mm3 (150-450); RBC Distribution Width CV 12.4 % (11.6-14.6); RBC Distribution Width SD 40.3 fl (35.1-43.9); Red Blood Count 4.82 M/mm3 (4.2-5.4); White Blood Count 5.7 K/mm3 (4.4-11.0)
[2024-01-16 08:08] LABS: Color, Urine Red (Yellow); Glucose, Dipstick Normal (Normal); Ketone-Dipstick Negative (Negative); Leukocyte Esterase-Dipstick 25 /ul (Negative); Nitrite-Dipstick Negative (Negative); Occult Blood-Urine 250 /ul (Negative); Protein-Dipstick 30 mg/dl (Negative); Urine Bilirubin Dipstick Negative (Negative); Urine Clarity Cloudy (Clear); Urine Urobilinogen Normal (Normal)
[2024-01-16 08:15] LABS: Red Blood Cells-Urine 25-50 SEEN /hpf (0-5); Squamous Epithelial Cells - UA 0-5 SEEN /hpf (5-10); White Blood Cells 0-5 SEEN /hpf (0-5)
[2024-01-16 08:21] LABS: AST(SGOT) 18 U/L (15-37); Alanine Aminotransfer ALT/SGPT 23 U/L (13-56); Albumin, Serum 3.7 g/dL (3.2-5.0); Alkaline Phosphatase 94 U/L (45-117); Anion Gap 8 (5-15); BUN 20 mg/dL (7-18); BUN/Creat Ratio 26.2 RATIO (10-20); Bilirubin, Direct 0.13 mg/dL (0.00-0.30); Calcium,Total 9.1 mg/dL (8.5-10.1); Chloride 107 mmol/L (98-107); Creatinine, Serum 0.76 mg/dL (0.55-1.02); EST Glomerular Filtration Rate 81 mL/min (>60); Est Glom Filt Rate - Afr Amer 98 mL/min (>60); Estimated Creatinine Clearance 72.72 ml/min; Globulin 3.6 g/dL (2.2-4.2); Glucose 121 mg/dL (74-106); Potassium 3.7 mmol/L (3.5-5.1); Protein, Total 7.3 g/dL (6.4-8.2); Sodium Level 141 mmol/L (136-145)
--- NOTE | 2024-01-16 09:51 | HP.PCM_ITS ---
HPI - General General Date of Admission: 01/16/24 Date of Service: 01/16/24 Chief Complaint: right hydronephrosis HPI Narrative ABBY DARBY, is a 63 F who presents the hospital with severe right flank pain patient was admitted for obstructing kidney stone she has right hydronephrosis she has a large stone impacted in the left mid ureter. [facility] Medical History Alcohol use Colon cancer screening Diabetes Diabetes type 2, controlled Dietary restriction Dietary restriction Health care maintenance History of hemorrhoids History of kidney stones History of renal disease Hyperlipidemia Macular hole Non-smoker Normal colonoscopy Osteoporosis Post-menopausal Preoperative evaluation to rule out surgical contraindication Right upper quadrant abdominal pain Wears glasses Home Medications blood sugar diagnostic (Accu-Chek Guide test strips) 11/26/19 [History Last Taken Unknown] multivitamin,kn-wayw-grgydode (Complete Multivitamin tablet) 1 tab PO DAILY 03/12/20 [History Last Taken 01/15/24] lancets #200 ea 04/23/20 [Rx Last Taken Unknown] blood sugar diagnostic (Accu-Chek Guide test strips) #200 ea 09/19/22 [Rx Last Taken Unknown] calcium carbonate 600 mg-vitamin D3 10 mcg (400 unit) tablet (Calcium 600 + D(3)) 1 tab PO DAILY 03/22/23 [History Last Taken 01/15/24] flash glucose scanning reader (OpenClovisStyle Suzy 14 Day [place]) #1 ea 09/22/23 [Rx Last Taken Unknown] flash glucose sensor (FreeStyle Suzy 14 Day Sensor kit) #1 ea 09/22/23 [Rx Last Taken Unknown] metformin 500 mg tablet 500 mg PO BID #180 tabs 01/04/24 [Rx Last Taken 01/15/24] Allergy/AdvReac Type Severity Reaction Status Date / Time ciprofloxacin [From Cipro] Allergy Rash Verified 01/16/24 07:09 ciprofloxacin HCl Allergy Rash Verified 01/16/24 07:09 [From Cipro] Family History Father Myocardial infarction Mother Myocardial infarction, Onset Age: 67 Brother Myocardial infarction, Onset Age: 45 Aunt Cancer Grandfather Diabetes Sister Breast cancer Surgical History History of appendectomy History of breast biopsy History of eye surgery History of orthopedic surgery History of shoulder surgery Hx of cystoscopy Social History Smoking Status: Never smoker alcohol intake: current alcohol intake frequency: a few times a week Alcohol type: wine substance use type: does not use caffeine: Yes what type of physical activity do you participate in: walking and aerobics frequency: 3-4 times per week seatbelt use: always do you feel safe at home: Yes 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 [employer] Constitutional Constitutional: Denies chills, fever(s) or malaise Eyes Eyes: Denies blurry vision or change in vision ENT HEENT: Reports none Cardiovascular Cardiovascular: Denies chest pain or palpitations Respiratory/Chest Respiratory/Chest: Denies cough or shortness of breath with exertion Gastrointestinal Gastrointestinal: Denies abdominal pain, constipation or diarrhea Musculoskeletal Musculoskeletal: Denies back pain, joint stiffness or joint swelling Integumentary Integumentary: Denies dry skin, jaundice, lesions or rash Neurologic Neurologic: Denies confusion, syncope or weakness Psychiatric Psychiatric: Reports none; Denies anxiety or depression Endocrine Endocrinology: Denies excessive sweating, fatigue or flushing Hematologic/Lymphatic Hematologic/Lymphatic: Denies anemia, easy bleeding or easy bruising Vital Signs Vital Signs Vital Signs: 01/16/24 07:09 01/16/24 07:15 01/16/24 08:15 Temperature 97.6 F L 97.9 F 98.0 F Temperature Source Temporal Temporal Temporal Pulse Rate 78 69 66 Respiratory Rate 16 16 16 Blood Pressure 105/63 124/82 H 126/86 H Blood Pressure Mean 77 96 99 Pulse Ox 99 98 96 Oxygen Delivery Method Room Air Room Air Room Air 01/16/24 09:15 01/16/24 09:15 Temperature 97.6 F L 97.6 F L Temperature Source Temporal Pulse Rate 70 70 Respiratory Rate 16 16 Blood Pressure 126/86 H 124/67 H Blood Pressure Mean 99 86 Pulse Ox 97 97 Oxygen Delivery Method Room Air Weight Weight: 69.581 kg Body Mass Index (BMI) 24.0 Physical Exam Const alert and oriented x3 General Appearance: cooperative HEENT normocephalic, head/scalp atraumatic, EAC's normal and TM's normal bilaterally Eyes PERRL and EOMs intact bilaterally Pupil: sluggish Neck no lymphadenopathy, supple and no JVD General: trachea midline Lymph Lymphatic: no lymphadenopathy noted, lymphedema and lymphadenopathy Resp normal respiratory effort, normal air movement and clear to auscultation bilaterally Cardio regular rate, regular rhythm and peripheral pulses 2+ throughout GI soft to palpation, non-tender and non-distended Extremity normal capillary refill and no clubbing, cyanosis or edema General Extremity: no tenderness to palpation of joints or extremities Skin no rashes or lesions noted General Skin Exam: turgor normal Lesions: no lesions Rashes: no rashes Neuro CN's II-XII intact bilaterally Speech: speech normal Motor Exam: strength 5/5 throughout; Negative for general weakness Psych thought process normal, cooperative and affect normal Appearance: appropriate Results Lab / Micro Data 01/16/24 07:49 01/16/24 07:49 Labs: Laboratory Results - last 24 hr 01/16/24 07:49: WBC 5.7, RBC 4.82, Hgb 14.2, Hct 42.7, MCV 88.6, MCH 29.5, MCHC 33.3, RDW Std Deviation 40.3, RDW Coeff of [place] 12.4, Plt Count 184, MPV 11.0, Immature Gran % (Auto) 0.200, Neut % (Auto) 74.2 H, Lymph % (Auto) 19.7, [place] % (Auto) 4.9, Eos % (Auto) 0.5, Baso % (Auto) 0.5, Absolute Neuts (auto) 4.2, Absolute Lymphs (auto) 1.12, Nucleated RBC % 0, Sodium 141, Potassium 3.7, Chloride 107, Carbon Dioxide 26.0, Anion Gap 8, BUN 20 H, Creatinine 0.76, Estim Creat Clear Calc 72.72, Est GFR (MDRD) Af Amer 98, Est GFR (MDRD) Non-Af 81, BUN/Creatinine Ratio 26.2 H, Glucose 121 H, Calcium 9.1, Total Bilirubin 0.50, Direct Bilirubin 0.13, AST 18, ALT 23, Alkaline Phosphatase 94, Total Protein 7.3, Albumin 3.7, Globulin 3.6, Urine Color Red, Urine Clarity Cloudy, Urine pH 7.0, Ur Specific [place] 1.010, Urine Protein 30 H, Urine Glucose (UA) Normal, Urine Ketones Negative, Urine Occult Blood 250 H, Urine Nitrite Negative, Urine Bilirubin Negative, Urine Urobilinogen Normal, Ur Leukocyte Esterase 25 H, Urine RBC 25-50 SEEN, Urine WBC 0-5 SEEN, Ur Squamous Epith Cells 0-5 SEEN, Urine Bacteria 0 SEEN, Urine Mucus 0 SEEN Imaging Radiology Impression Abdomen/Pelvis CT 01/16/24 07:23 IMPRESSION: Right hydronephrosis and hydroureter due to a 7.2 mm calculus in the distal one third of the ureter. Nonspecific increased markings in the mesenteric fat at the level of the root of the mesentery. Left parapelvic renal cysts. Electronically Signed: Taj Dhaliwal MD at 8:33 EDT , Assessment & Plan Assessment/Plan (1) Urolithiasis: PLAN: patient admitted for pain control plan to take her surgery tomorrow for cystoscopy and left stent placement (2) Flank pain:
[2024-01-16] MEDS: Cefazolin 1 GM/50 ML BAG IV ×3 (11:46→21:24)
[2024-01-17] VITALS (9 sets, daily range): BP systolic 89–121; BP diastolic 56–72; PULSE 65–82; RESP 16–20; TEMP 36.3–36.8; O2SAT 92–97; BMI 24.0
[2024-01-17] MEDS: 0.9% Normal Saline (1000mL) 1,000 ML 125 ML IV ×2 (04:01→12:26)
[2024-01-17] MEDS: Cefazolin 1 GM/50 ML BAG IV ×2 (05:41→13:07)
[2024-01-17 05:45] LABS: Hematocrit 37.4 % (37-47); Hemoglobin 12.4 g/dL (12.0-15.0); Mean Corp Hgb Conc 33.2 g/dL (32-36); Mean Corpuscular Hgb 29.8 pg (27.0-32.0); Mean Corpuscular Volume 89.9 fL (81-99); Mean Platelet Vol. 10.7 fl (6.2-12.0); Platelet Count 147 K/mm3 (150-450); RBC Distribution Width CV 12.7 % (11.6-14.6); RBC Distribution Width SD 41.6 fl (35.1-43.9); Red Blood Count 4.16 M/mm3 (4.2-5.4); White Blood Count 3.6 K/mm3 (4.4-11.0)
[2024-01-17 06:06] LABS: Anion Gap 4 (5-15); BUN 11 mg/dL (7-18); BUN/Creat Ratio 19.5 RATIO (10-20); Calcium,Total 8.4 mg/dL (8.5-10.1); Chloride 117 mmol/L (98-107); Creatinine, Serum 0.56 mg/dL (0.55-1.02); EST Glomerular Filtration Rate 114 mL/min (>60); Est Glom Filt Rate - Afr Amer 138 mL/min (>60); Estimated Creatinine Clearance 98.69 ml/min; Glucose 108 mg/dL (74-106); Potassium 3.7 mmol/L (3.5-5.1); Sodium Level 143 mmol/L (136-145)
--- NOTE | 2024-01-17 06:24 | EKG12_ITS ---
Test Reason : Blood Pressure : / mmHG Vent. Rate : 064 BPM Atrial Rate : 064 BPM P-R Int : 134 ms QRS Dur : 140 ms QT Int : 428 ms P-R-T Axes : 025 -28 006 degrees QTc Int : 441 ms Normal sinus rhythm Right bundle branch block Abnormal ECG Confirmed by Bhaskar Ross ([id number]), editor producer FIDEL BERMUDEZ ([id number]) on 01/22/2024 1:00:19 PM Referred By: PRO Confirmed By:Bhaskar Ross
[2024-01-17 13:31] LABS: Bedside Glucose 89 mg/dL (74-106)
[2024-01-17] MEDS: 0.9% Normal Saline (1000mL) 1,000 ML 15 ML IV (14:26)
--- NOTE | 2024-01-17 15:05 | PCM.DC ---
Discharge Instructions Diet Discharge Diet: No restrictions Activity Discharge Activity: Return to Normal Activity and May Not Drive (while taking narcotic pain medications.) Dressing / Incision Call your doctor if you observe: Fever of 101 or Higher Follow Up Care Please Follow Up With: Shai Luciano MD When: Call [phone] for an appointment Test Results: Test results from this visit will be discussed in further detail at your follow-up appointment, if applicable. Discharge Plan Admission Admit Date/Time: 01/16/24 14:03 Primary Reason for Your Visit: kidney stone Attending Provider: Shai Luciano Primary Care Provider: Jessica Gage Discharge Orders/Prescriptions Prescriptions: New cephalexin 500 mg capsule 1,000 mg PO BID Qty: 10 0RF oxycodone 5 mg tablet 5 mg PO Q6H PRN (Reason: pain) 7 Days Qty: 14 0RF Continued (DME) Accu-Chek Guide test strips Strip See Rx Instructions .ROUTE .MEDSUPPLY Rx Instructions: As directed Twice daily Complete Multivitamin Tablet 1 tab PO DAILY calcium carbonate-vitamin D3 [Calcium 600 + D(3)] 600 mg-10 mcg (400 unit) tablet 1 tab PO DAILY (DME) FreeStyle Suzy 14 Day [place] Misc See Rx Instructions .ROUTE .MEDSUPPLY Qty: 1 0RF Rx Instructions: As directed (DME) FreeStyle Suzy 14 Day Sensor Kit See Rx Instructions .ROUTE .MEDSUPPLY Qty: 1 7RF Rx Instructions: As directed (DME) lancets Misc See Rx Instructions .ROUTE .MEDSUPPLY Qty: 200 4RF Rx Instructions: Uses Accu-Chek guide Drum As directed Twice Daily (DME) Accu-Chek Guide test strips Strip See Rx Instructions .ROUTE .MEDSUPPLY Qty: 200 3RF Rx Instructions: Twice daily metformin 500 mg tablet 500 mg PO BID Qty: 180 1RF Referrals / Follow Up: Jessica Gage MD [Primary Care Provider] - Shai Luciano MD [[facility] Staff - Active Staff] -
--- NOTE | 2024-01-17 15:43 | PCM.OPRPT ---
Report of Operation Date of Procedure: 01/17/24 Pre-Operative Diagnosis: Right ureteral calculi Post-Operative Diagnosis: The same Surgery/Procedure Performed:: Cystoscopy right retrograde pyelogram right stent placement Description of Surgical Findings:: Patient was taken back to the operative room at this with induction of a general anesthesia she was placed in dorsolithotomy position. The urethrovaginal area prepped and draped in usual sterile fashion went in the bladder with a 21 [place] rigid cystourethroscope cannulated the right ureteral orifice with a Glidewire and then advanced a wire up in the kidney over the wire then advanced a [place] catheter performed: Retrograde pyelogram with contrast going up to the kidney and then over the wire advanced a stent it was a 6 [place] by 24 cm stent once I got up to the kidney and the stent actually was very hard to get past the stone was very impacted stone but there is able to get the stent past the stone and then the stent coiled in the renal pelvis and in the bladder I with a string on the stent just in case it would migrate and the patient anesthetic was reversed bladder was drained she taken back to PACU in good condition she will be discharged home today and we will set her up for outpatient laser of the stone Surgeon: Shai Luciano Type of Anesthesia: General Drains: stent right Admit VTE Documentation VTE Present on Admission: No VTE Mechan Device Prophylaxis: SCD's VTE Pharm Prophylaxis ordered?: No
== END 2024-01-17 18:17 | disposition home or self-care (01) ==
LOC: ED 08:56 → MS3 12:03
PROVIDERS: Admitting Provider Urology; Emergency Provider Emergency Medicine; PCP Internal Medicine; Visit Provider Urology
PROC: (CPT 52332; principal; 2024-01-17 15:10)
DX: N13.2 Hydronephrosis with renal and ureteral calculous obstruction (principal); E11.9 Type 2 diabetes mellitus without complications; E78.00 Pure hypercholesterolemia, unspecified; Z79.899 Other long term (current) drug therapy; Z79.84 Long term (current) use of oral hypoglycemic drugs
CPT/HCPCS: 52332; 00910; 74176; 76000; 80048; 80076; 81001; 82962; 85025; 85027; 93005; 96361; 96365; 96366; 96375; 99221; 99284; J7030; A4216; G0378; J2405

== ENCOUNTER 2024-01-22 09:53 | Day surgery (SDC) | payer OTHER, SELFPAY ==
--- NOTE | 2024-01-16 06:53 | EKG12_ITS ---
Test Reason : PREOP Blood Pressure : / mmHG Vent. Rate : 087 BPM Atrial Rate : 087 BPM P-R Int : 132 ms QRS Dur : 134 ms QT Int : 412 ms P-R-T Axes : 059 -42 012 degrees QTc Int : 495 ms Normal sinus rhythm Left axis deviation Right bundle branch block Abnormal ECG Confirmed by Bhaskar Ross ([id number]), editorial assistant AVIS SOLOMON ([id number]) on 01/17/2024 9:42:38 AM Referred By: Randolph Cohn Confirmed By:Bhaskar Ross
[2024-01-16 08:15] LABS: Anion Gap 8 (5-15); BUN 20 mg/dL (7-18); BUN/Creat Ratio 27.5 RATIO (10-20); Calcium,Total 8.9 mg/dL (8.5-10.1); Chloride 107 mmol/L (98-107); Creatinine, Serum 0.73 mg/dL (0.55-1.02); EST Glomerular Filtration Rate 85 mL/min (>60); Est Glom Filt Rate - Afr Amer 103 mL/min (>60); Glucose 126 mg/dL (74-106); Sodium Level 141 mmol/L (136-145)
[2024-01-16 09:32] LABS: Hemoglobin A1c 5.7 % (3.8-5.6)
[2024-01-22] VITALS (9 sets, daily range): BP systolic 85–109; BP diastolic 51–63; PULSE 60–84; RESP 14–18; TEMP 35.7–36.4; O2SAT 92–99; BMI 23.5
[2024-01-22] MEDS: Lactated Ringers 1,000 ML 15 ML IV ×2 (10:14→14:03)
[2024-01-22 10:33] LABS: Bedside Glucose 98 mg/dL (74-106)
--- NOTE | 2024-01-22 10:35 | HP.PCM_ITS ---
History and Physical Date of Admission: 01/22/24 Intake Vital Signs 09/22/2313:33 01/09/2408:19 Height 5 ft 6 in 5 ft 7 in Weight: 152 lb 153 lb 4 oz BMI 24.5 24.0 BP 120/60 125/76 H Blood Pressure Location Lt brachial Rt brachial Position Sitting Sitting Respiration 16 18 Pulse 79 84 Pulse Source Monitor Monitor Temp 97.3 F L 97.6 F L Temp Source Temporal Temporal Pulse Oximetry (%) 97 94 Oxygen Delivery Method room air room air Intake Visit Reasons: RUQ PAIN Chief Complaint: ruq pain Hospice Nurse Practitioner Required: No Accompanied by: Is patient in pain?: No Allergies ciprofloxacin [From Cipro] Allergy (Verified 01/09/24 08:19) Rashciprofloxacin HCl [From Cipro] Allergy (Verified 01/09/24 08:19) Rash Medications blood sugar diagnostic (Accu-Chek Guide test strips) 11/26/19 [History Confirmed 01/09/24] multivitamin,[id number] (Complete Multivitamin tablet) 1 tab PO DAILY 03/12/20 [History Confirmed 01/09/24] lancets #200 ea 04/23/20 [Rx Confirmed 01/09/24] blood sugar diagnostic (Accu-Chek Guide test strips) #200 ea 09/19/22 [Rx Confirmed 01/09/24] calcium carbonate 600 mg-vitamin D3 10 mcg (400 unit) tablet (Calcium 600 + D(3)) 1 tab PO DAILY 03/22/23 [History Confirmed 01/09/24] flash glucose scanning reader (FreeStyle Suzy 14 Day [place]) #1 ea 09/22/23 [Rx Confirmed 01/09/24] flash glucose sensor (FreeStyle Suzy 14 Day Sensor kit) #1 ea 09/22/23 [Rx Confirmed 01/09/24] metformin 500 mg tablet 500 mg PO BID #180 tabs 01/04/24 [Rx Confirmed 01/09/24] PFSH Medical History Alcohol use Colon cancer screening Diabetes Diabetes type 2, controlled Dietary restriction Health care maintenance History of hemorrhoids History of kidney stones Hyperlipidemia Macular hole Non-smoker Normal colonoscopy Osteoporosis Post-menopausal Preoperative evaluation to rule out surgical contraindication Right upper quadrant abdominal pain Wears glasses Surgical History History of appendectomy History of breast biopsy History of orthopedic surgery Hx of cystoscopy Family History Father Myocardial infarctionMother Myocardial infarction, Onset Age: 67Brother Myocardial infarction, Onset Age: 45Aunt CancerGrandfather DiabetesSister Breast cancer Social History Smoking Status: Never smoker alcohol intake: current alcohol intake frequency: a few times a week Alcohol type: wine substance use type: does not use caffeine: Yes what type of physical activity do you participate in: walking and aerobics frequency: 3-4 times per week seatbelt use: always do you feel safe at home: Yes additional social history: [employer] service mechanic for [employer] HPI HPI HPI: Patient is a 63-year-old female here with biliary dyskinesia. She has been having right upper quadrant discomfort that radiates to her back. She says it does not coincide with the eating and it is episodic. She says sometimes with eating and still little bit of discomfort but not as severe as it was during her episode. ROS General General: No weight change, appetite, fatigue, colon cancer, breast cancer or weakness HEENT HEENT: Yes eye surgery; No difficulty swallowing, eye injury, swollen glands or hoarseness Endo Endocrine: Yes diabetes mellitus; No thyroid disease, thyroid cancer, Hair loss, heat intolerance or cold intolerance Skin Skin: No rash or changing moles Musc Musculoskeletal: Yes arthritis; No back problems, rheumatoid arthritis, gout or joint pain Cardio Cardiovascular: No murmur, pacemaker, heart disease, atrial fibrillation, high blood pressure, heart attack, heart stent, palpitations, shortness of breat with exertion or chest pain Psych Psychiatric: No depression, anxiety or hearing voices Resp Respiratory: No shortness of breath, No sleep apnea, No cough, No COPD, No asthma, No emphysema and No wheezing Gastro Gastrointestinal: Yes abdominal pain, No nausea or vomiting, No diarrhea, No constipation, No blood in stool, No acid reflux, No hemorrhoids, No ulcers, Yes gallbladder problem and No black,tarry stools Rodriguez Hematologic: No blood thinners, No blood disorders, No bleeding, No anemia and No blood clots Neuro Neurologic: No weakness Exam Const General: cooperative Orientation: alert and oriented x3 HENMT Head: normal to inspection Neck Neck: normal visual inspection and full ROM Chest Chest palpation & inspection: normal inspection of the chest Resp Effort & Inspection: normal respiratory effort Auscultation: clear to auscultation bilaterally Cardio Rate: regular rate Rhythm: regular rhythm GI Inspection: non-distended Palpation: soft and nontender Skin General: no rashes or lesions noted Neuro General: patient alert and patient oriented x3 Extrem General: full ROM Psych Appearance: grossly normal Mental Status: mental status grossly normal Assessment and Plan Assessment and Plan (1) Biliary dyskinesia: Status: Acute Plan: The patient had severe right upper quadrant pain and and she also has underlying occasional right upper quadrant pain that radiates to the back. Patient had an ultrasound which did not show any gallstones but she had a HIDA that showed ejection fraction less than 5%. She would like to try surgery as she is very uncomfortable when this happens. I discussed the laparoscopic cholecystectomy in detail with the patient. I discussed the risks, benefits, and alternatives of the procedure. I discussed the risks including but not limited to bleeding, infection, injury to surrounding organs such as the liver, bile duct, bowels. I did discuss the possibility of having to convert to an open procedure as well as the possibility that if any injuries occurred this may necessitate further surgery at a tertiary care center. Randolph Cohn MD Pager: [facility] [address] [place] [address], [address] [place] [address] Office: I have examined the patient and the H&P has been reviewed. There are no clinical changes since date of exam. The patient did have right ureteroscopy for right obstruction from kidney stone. Patient reports that this is different than the pain she normally has and would still like her gallbladder removed and I agreed.
[2024-01-22] MEDS: Cefotetan 2 GM in 0.9% NS 100 ML IV (11:55)
--- NOTE | 2024-01-22 12:10 | RAD_ITS ---
PROCEDURE: Intraoperative cholangiogram. INDICATION: LAP RYAN WITH IOC EXAMINATION/TECHNIQUE: Cine intraoperative views are presented for evaluation. Total Fluoroscopic Time: 6.8 seconds. OR Radiation dosage index: 1.82 mGy COMPARISON: CT scan of the abdomen pelvis of 01/16/2024 FINDINGS: No filling defects are identified. There is no biliary ductal dilatation. There is free passage into the duodenum. RAD/Cholangiogram/ O R,Initial IMPRESSION: Negative intraoperative cholangiogram. Electronically Signed: Amos Hauser MD at 13:25 EDT ,
[2024-01-22] MEDS: Bupivacaine 0.25% 30 ML Vial (12:30)
--- NOTE | 2024-01-22 12:30 | GALL_PTH ---
PATIENT: ABBY DARBY LOC: [facility] [place] U#:[id number] AGE/SX: 63/F ROOM: RE01/22/[address]: Dr. Randolph Cohn MD : 1960 BED: DIS: 01/22/2024 SPEC #: [id number] RECD: 01/22/24 13:50 STATUS: FEMI CROOK #: [id number] LALO: 01/22/24 12:[address]: Randolph Cohn DEPT: SURGICAL PATHOLOGY RECD BY: Emily Castañeda ENTERED: 01/23/24 08:45 SP TYPE: MARIAELENA JANSEN DR: Dr. Jessica Gage MD Tissues: Gallbladder, NOS Procedures: Surgery Specimen Level III HEADER OPERATION: Laparoscopic, Cholecystectomy with IOC PRE-OP DIAGNOSIS: Biliary dyskinesia TISSUE SUBMITTED: Gallbladder MICROSCOPIC DIAGNOSIS Gallbladder, cholecystectomy: Chronic cholecystitis. Am/mr 01/24/24 MICROSCOPIC DESCRIPTION Slides are reviewed. GROSS DESCRIPTION Received is one container labeled with the patient's name and designated gallbladder. The specimen consists of a gallbladder measuring 7.5 cm in length and up to 3.0 cm in diameter. The external surface is pink-conley, smooth and glistening for the most part. Focally it is granular, hemorrhagic and contains cautery artifact. The gallbladder contains green-yellow mucoid bile. No stones are identified in the container or in the gallbladder. The mucosa is bile-stained and without any mass lesions. The gallbladder wall measures up to 0.3 cm in thickness. Sdv Pilot/Navigator/Dds Operator sections from the gallbladder and the cystic duct are submitted in one cassette. / SJ: 01/23/24 TC:3 CPT: 08470
--- NOTE | 2024-01-22 12:45 | OP.PCM_ITS ---
Report of Operation Date of Procedure: 01/22/24 Pre-Operative Diagnosis: Biliary dyskinesia Post-Operative Diagnosis: Same Surgery/Procedure Performed:: Laparoscopic cholecystectomy with cholangiograms Type of Anesthesia: General/Regional Specimen's removed: Gallbladder Estimated Blood Loss (mL): 10 Description of Procedure: After obtaining informed consent patient was brought back to the operating room. General anesthesia was induced. The abdomen was prepped and draped in usual sterile fashion. A small midline incision was made superior to the umbilicus and deepened to the level of fascia. The fascia was elevated and incised. Next the peritoneum was elevated and incised in the same fashion. Finger sweep was performed and the Munoz trocar was placed into the abdomen. The balloon was inflated. The abdomen was inflated to 15 mmHg. Next a camera was introduced into the abdomen and the abdomen was inspected. Next under direct visualization three 5-mm ports were placed one subxiphoid and 2 subcostal. Next the gallbladder was elevated and retracted toward the right shoulder. The peritoneum was stripped from the gallbladder. The infundibulum was located and retracted laterally. Next the triangle of Calot was dissected and the cystic duct and cystic artery were identified. Cholangiograms were performed. The [place] clamp was used to clamp across the infundibulum and the catheter needle was inserted into the gallbladder. Under fluoroscopy contrast was instilled into the gallbladder and the common duct, cystic duct as well as proximal hepa tic ducts were identified. There was good filling of the duodenum. There were no filling defects noted in the common bile duct. The clamp was removed as well as the needle and the infundibulum was grasped once more. Three hemolock clips were placed across the cystic duct. The cystic duct was then divided leaving 2 clips on the stump. The cystic artery was clipped and divided in the same fashi on. The hook cautery was then used to take the gallbladder off of the gallbladder bed. Hemostasis was obtained. Gallbladder fossa was irrigated and no active bleeding or bile leakage was noted. Next the camera was introduced in the subxiphoid port. An Endopouch bag was placed through the umbilical port and the gallbladder was placed into it. The gallbladder was then removed through the umbilical incision. The camera was then reinserted through the umbilical port. The gallbladder fossa was inspected once more and noted to be hemostatic but there seem to be a small bile leak from a duct of Luschka at the distal hepatic bed. A clip was placed across this which stopped the leak. It was irrigated once more and there was no leak. The abdomen was suctioned dry. The 5 mm ports were removed under direct visualization. The umbilical port was then removed and the air was removed from the abdomen. Next using an 0 Vicryl suture the umbilical fascia was closed in a [id number] fashion. The umbilical port site was irrigated local anesthetic was administered to all the incisions. All the incisions were closed with interrupted subcuticular 4-0 Monocryl sutures followed by Steri-Strips and dressings. The patient was awoken and taken to PACU in stable condition. Admit VTE Documentation VTE Mechan Device Prophylaxis: SCD's
--- NOTE | 2024-01-22 12:46 | EX.PCM.DISCH ---
Discharge Instructions Procedure Gallbladder Diet Discharge Diet: Light diet - advance as tolerated Activity Discharge Activity: May Not Drive (for 2-3 days or while taking narcotic pain medications.) and - (Do not drive, work heavy equipment or sign legal documents for 24 hours.) May shower in (days): 1 Lifting Restrictions: 20 lbs for 2 weeks Additional Activity Instructions:: Pain medication may cause nausea. You should typically eat light foods as you take your pain medications. Pain medication may also cause constipation. If this is a problem for you, please discuss with your doctor. Alternate ibuprofen and Tylenol for pain, oxycodone for breakthrough pain. Dressing / Incision Call your doctor if your incision/area has: Continuous Slow Oozing, Sudden Increased Bleeding, Increased Pain/ Swelling, Increased Redness and Foul Smelling Discharge Call your doctor if you observe: Fever of 101 or Higher Suture Line Care: Avoid Pulling/Pushing and Avoid Pinching/Bending Remove Dressing in: 2 days Additional Dressing/Incision Instructions:: Leave operative bandaids on for 2 days. Remove Steri-Strips in 7 to 10 days Follow Up Care Please Follow Up With: Randolph Cohn MD When: Please call to schedule 2 week follow up appointment. [phone] Test Results: Test results from this visit will be discussed in further detail at your follow-up appointment, if applicable. Discharge Plan Admission Attending Provider: Randolph Cohn Primary Care Provider: Jessica Gage Discharge Orders/Prescriptions Prescriptions: New oxycodone 5 mg Tablet 5 - 10 mg PO Q4H PRN PRN (Reason: Pain Score 4-10/10) 7 Days Qty: 15 0RF Continued (DME) Accu-Chek Guide test strips Strip See Rx Instructions .ROUTE .MEDSUPPLY Rx Instructions: As directed Twice daily Complete Multivitamin Tablet 1 tab PO DAILY calcium carbonate-vitamin D3 [Calcium 600 + D(3)] 600 mg-10 mcg (400 unit) tablet 1 tab PO DAILY (DME) FreeStyle Suzy 14 Day [place] Misc See Rx Instructions .ROUTE .MEDSUPPLY Qty: 1 0RF Rx Instructions: As directed (DME) FreeStyle Suzy 14 Day Sensor Kit See Rx Instructions .ROUTE .MEDSUPPLY Qty: 1 7RF Rx Instructions: As directed (DME) lancets Misc See Rx Instructions .ROUTE .MEDSUPPLY Qty: 200 4RF Rx Instructions: Uses Accu-Chek guide Drum As directed Twice Daily (DME) Accu-Chek Guide test strips Strip See Rx Instructions .ROUTE .MEDSUPPLY Qty: 200 3RF Rx Instructions: Twice daily metformin 500 mg tablet 500 mg PO BID Qty: 180 1RF Discontinued oxycodone 5 mg tablet 5 mg PO Q6H PRN (Reason: pain) 7 Days Qty: 14 0RF Referrals / Follow Up: Jessica Gage MD [Primary Care Provider] - Disposition Disposition (needs filled in before D/C Order can be placed): Home, Self Care
[2024-01-22 13:49] LABS: Bedside Glucose 110 mg/dL (74-106)
== END 2024-01-22 16:32 | disposition home or self-care (01) ==
LOC: SDC 09:59 → AC 10:00
PROVIDERS: Anesthesiology; PCP Internal Medicine; Referring Provider Surgery; Visit Provider Surgery
PROC: (CPT 47610; principal; 2024-01-22 12:10)
DX: K81.1 Chronic cholecystitis (principal); E11.9 Type 2 diabetes mellitus without complications; K82.8 Other specified diseases of gallbladder; Z79.84 Long term (current) use of oral hypoglycemic drugs
CPT/HCPCS: 47563; 00790; 36415; 74300; 76000; 80048; 82962; 83036; 88304; 93005; J7120; J2405

== ENCOUNTER 2024-01-27 20:41 | Emergency (ER) | payer OTHER, SELFPAY ==
[2024-01-27 20:41] VITALS: BP 131/81; PULSE 86; RESP 17; TEMP 36.7; O2SAT 97; BMI 24.5
--- NOTE | 2024-01-27 20:57 | CT_ITS ---
INDICATION: Kidney Stone EXAMINATION: CT ABDOMEN AND PELVIS WITHOUT CONTRAST - CT Abdomen And Pelvis W/O Contrast Injection TECHNIQUE: Helically acquired images were obtained of the abdomen and pelvis without oral or IV contrast. A radiation dose optimization technique was used for this scan. IV Contrast dosage and agent: None. Oral contrast: None. COMPARISON: January 16, 2024., December 26, 2014 FINDINGS: LOWER CHEST: Lung bases are clear. No cardiomegaly or pericardial effusion. LIVER: Homogeneous. No focal mass. GALLBLADDER AND BILIARY TREE: No calcified gallstones. No gallbladder distension or wall edema. No intra- or extrahepatic biliary ductal dilation. PANCREAS: No focal cystic or solid mass. SPLEEN: Normal size without focal cystic or solid mass. ADRENAL GLANDS: No nodules. KIDNEYS AND URETERS/BLADDER: Moderate right hydronephrosis with double-J ureteral stent coiled in the right ureteropelvic junction and bladder. 2 mm distal right ureterovesical junction stone adjacent to the stent. Mild fat stranding along the right ureter. Multiple nonobstructive stones in the right kidney. Partially inferior left renal collecting system. Left parapelvic cysts are unchanged from December 26, 2014 with mild new left hydronephrosis. No visible left ureteral stone. No ureteral dilatation or surrounding inflammation. Mildly distended bladder without wall thickening or surrounding inflammation. . PERITONEUM: Trace dependent fluid in the right posterior cul-de-sac air. No other fluid collection. BOWEL: No acute gastric finding. No small bowel distention or focal wall thickening. Surgically absent appendix. No acute colonic finding. . LYMPH NODES: No enlarged mesenteric or retroperitoneal lymph nodes. VESSELS: Aortic atherosclerosis without ectasia. REPRODUCTIVE ORGANS: Unremarkable uterus and adnexa. ABDOMINAL WALL: No discrete abdominal or pelvic wall hernia. BONES: No lytic or blastic abnormality. CT/Abdomen/Pelvis without Cont IMPRESSION: Persistent moderate right hydronephrosis with small dependent nonobstructive stones. Right double-J ureteral stent in expected position with minimal surrounding inflammation. 2 mm right ureterovesical junction adjacent to the stent. 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 Mild hydronephrosis of the lower moiety without evidence of obstructing stone or mass. Electronically Signed: Musa Li MD at 22:15 EDT ,
--- NOTE | 2024-01-27 20:57 | EX.ED.DYSGE1 ---
HPI History of Present Illness Chief Complaint: Flank Pain Informant: patient and spouse/S.O. Narrative Narrative: 63-year-old female presenting to the emergency room with right flank pain. Patient states that she recently underwent right ureteral stent placement for kidney stone followed a few days later via a cholecystectomy. Yesterday she states she underwent lithotripsy with stent replacement at outpatient surgical center with Dr. Luciano. She states that today the pain is increasingly unbearable. She does note some urinary urgency. She notes nausea no vomiting. She notes small amount of diarrhea and flatus. She states that she took some hydrocodone earlier today which did not help. She talked with Dr. Luciano and took extra ibuprofen with no relief. She states that the pain is unbearable at this moment. She states she has had several kidney stones in the past and feels that this is kidney stone related but she is just in pain. No reported fevers. No breathing difficulties. [facility] Medical History (Updated 01/27/24 @ 23:[address] Noel Mary, ) Alcohol use Colon cancer screening Diabetes Diabetes type 2, controlled Dietary restriction Dietary restriction Health care maintenance History of hemorrhoids History of kidney stones History of renal disease Hyperlipidemia Macular hole Non-smoker Normal colonoscopy Osteoporosis Post-menopausal Preoperative evaluation to rule out surgical contraindication Right upper quadrant abdominal pain Wears glasses Home Medications blood sugar diagnostic (Accu-Chek Guide test strips) 11/26/19 [History Last Taken Unknown] multivitamin,[id number] (Complete Multivitamin tablet) 1 tab PO DAILY 03/12/20 [History Last Taken 01/21/24] lancets #200 ea 04/23/20 [Rx Last Taken Unknown] blood sugar diagnostic (Accu-Chek Guide test strips) #200 ea 09/19/22 [Rx Last Taken Unknown] calcium carbonate 600 mg-vitamin D3 10 mcg (400 unit) tablet (Calcium 600 + D(3)) 1 tab PO DAILY 03/22/23 [History Last Taken 01/21/24] flash glucose scanning reader (HoontoStyle Suzy 14 Day [place]) #1 ea 09/22/23 [Rx Last Taken Unknown] flash glucose sensor (FreeStyle Suzy 14 Day Sensor kit) #1 ea 09/22/23 [Rx Last Taken Unknown] metformin 500 mg tablet 500 mg PO BID #180 tabs 01/04/24 [Rx Last Taken 01/21/24] oxycodone 5 mg tablet 5 - 10 mg (1 - 2 x 5 mg) PO Q4H PRN PRN Pain Score 4-10/10 7 days #15 tabs 01/22/24 [Rx Last Taken Unknown] oxycodone-acetaminophen 5 mg-325 mg tablet (Percocet) 1 - 2 tab PO Q6H PRN pain 3 days #20 tabs 01/27/24 [Rx Last Taken Unknown] tamsulosin 0.4 mg capsule 0.4 mg PO DAILY 01/27/24 [History Last Taken Unknown] Allergy/AdvReac Type Severity Reaction Status Date / Time ciprofloxacin [From Cipro] Allergy Rash Verified 01/27/24 20:43 ciprofloxacin HCl Allergy Rash Verified 01/27/24 20:43 [From Cipro] Family History Father Myocardial infarction Mother Myocardial infarction, Onset Age: 67 Brother Myocardial infarction, Onset Age: 45 Aunt Cancer Grandfather Diabetes Sister Breast cancer Surgical History (Updated 01/27/24 @ 21:20 by Gaby León) History of appendectomy History of breast biopsy History of eye surgery History of orthopedic surgery History of shoulder surgery Hx of cholecystectomy Hx of cystoscopy Social History Smoking Status: Never smoker alcohol intake: current alcohol intake frequency: a few times a week Alcohol type: wine substance use type: does not use caffeine: Yes what type of physical activity do you participate in: walking and aerobics frequency: 3-4 times per week seatbelt use: always do you feel safe at home: Yes additional social history: David- political worker for [employer] ED Constitutional Constitutional ED: Denies chills, fever(s) or weight loss Eyes Eyes: Denies change in vision or diplopia ENT ENT ED: Denies ear pain, rhinorrhea or sore throat Cardiovascular Cardiovascular: Denies chest pain, orthopnea, palpitations or racing heartbeat Respiratory/Chest Respiratory/Chest: Denies cough, dyspnea or orthopnea Gastrointestinal Gastrointestinal: Reports nausea and other Details: right flank pain ; Denies abdominal pain, diarrhea or vomiting Genitourinary Genitourinary ED: Denies dysuria, hematuria or urinary frequency Musculoskeletal Musculoskeletal: Denies arthralgias or myalgias Integumentary Denies abscess or rash Neurologic Neurologic: Denies headache(s) or weakness Psychiatric Psychiatric: Denies anxiety, depression, suicidal ideation or suicidal thoughts Endocrine Endocrinology: Denies polydipsia, polyphagia or polyuria Allergic/Immunologic Allergic/Immunologic ED: Denies mouth swelling, tongue swelling or urticaria EXAM Physical Exam Narrative Exam Narrative: Patient is tearful laying in the bed in the left recumbent position. Const Vital Signs: 01/27/24 20:41 01/27/24 22:41 Temperature 98.0 F Temperature Source Temporal Pulse Rate 86 70 Respiratory Rate 17 16 Blood Pressure 131/81 H 110/60 Blood Pressure Mean 97 76 Pulse Ox 97 98 Oxygen Delivery Method Room Air Room Air Positive well nourished and well developed General Appearance ED: well developed HEENT Reports normocephalic, head/scalp atraumatic and moist mucous membranes Eyes PERRL and EOMs intact bilaterally Neck no lymphadenopathy, supple and no JVD Resp normal respiratory effort and clear to auscultation bilaterally Cardio regular rate, regular rhythm and no murmurs GI normal to inspection, nondistended, normoactive bowel sounds GI Narrative: They are here leaning laparoscopic incisions without evidence of complication. Auscultation: normoactive bowel sounds Palpation: soft Back/Spine normal ROM General Back: CVA tenderness right Extremity normal to inspection General Extremety ED: Negative for edema General Extremity: Negative for edema Neuro oriented x3 and CN's II-XII intact bilaterally Sensorium / Orientation: alert Motor Exam: strength 5/5 throughout Psych mental status grossly normal Mood & Affect: Negative for depressed or tearful Skin no rashes or lesions noted and no wounds MDM MDM MDM Narrative Medical decision making narrative: White count returns 8.1 with 71.3 neutrophils. Creatinine 1.13 with a BUN of 30 glucose 136 ALT 62 alk phos 124. Urinalysis no overt infection. CT of the abdomen pelvis with IV contrast was obtained. This shows some hydronephroureter with a ureteral stent in place. There is a distal ureteral stone that appears to be passing. Patient received Dilaudid and her pain is significantly improved. She is comfortable going home with some oxycodone. I spoke with Dr. Luciano. She will be discharged to return if needed. History & Record Review Discussion w/independent historian: Patient and Significant other Lab Data Attestation: I reviewed the patient's lab results. Labs: Laboratory Results - last 24 hr 01/27/24 01/27/24 20:51 21:05 WBC 8.1 RBC 4.31 Hgb 12.9 Hct 38.0 MCV 88.2 MCH 29.9 MCHC 33.9 RDW Std Deviation 40.8 RDW Coeff of [place] 12.5 Plt Count 157 MPV 10.7 Immature Gran % (Auto) 0.100 Neut % (Auto) 71.3 H Lymph % (Auto) 18.1 L Grand % (Auto) 8.4 Eos % (Auto) 1.7 Baso % (Auto) 0.4 Absolute Neuts (auto) 5.8 Absolute Lymphs (auto) 1.47 Nucleated RBC % 0 Sodium 138 Potassium 3.3 L Chloride 106 Carbon Dioxide 26.0 Anion Gap 6 BUN 30 H Creatinine 1.13 H Estim Creat Clear Calc 48.91 Est GFR (MDRD) Af Amer 62 Est GFR (MDRD) Non-Af 51 L BUN/Creatinine Ratio 26.5 H Glucose 136 H Calcium 8.6 Total Bilirubin 0.30 Direct Bilirubin 0.11 AST 33 ALT 62 H Alkaline Phosphatase 124 H Total Protein 6.7 Albumin 3.6 Globulin 3.1 Lipase 52 Urine Color Straw Urine Clarity Clear Urine pH 6.5 Ur Specific [place] 1.010 Urine Protein Negative Urine Glucose (UA) Normal Urine Ketones Negative Urine Occult Blood 250 H Urine Nitrite Negative Urine Bilirubin Negative Urine Urobilinogen Normal Ur Leukocyte Esterase 500 H Urine RBC 0-5 SEEN Urine WBC 0-5 SEEN Ur Squamous Epith Cells 0 SEEN Urine Bacteria 0 SEEN Urine Mucus 0 SEEN Radiography Diagnostic Testing: Clinical Impression(s) from Imaging Studies Abdomen/Pelvis CT 01/27/24 20:57 IMPRESSION: Persistent moderate right hydronephrosis with small dependent nonobstructive stones. Right double-J ureteral stent in expected position with minimal surrounding inflammation. 2 mm right ureterovesical junction adjacent to the stent. 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 Mild hydronephrosis of the lower moiety without evidence of obstructing stone or mass. Electronically Signed: Musa Li MD at 22:15 EDT Reading Location ID and State: [facility] / [place] Tel , Service support , Discharge Plan Triage Chief Complaint: Flank Pain ED Provider: Noel Mary Dx/Rx/DC Orders Clinical Impression: Kidney stone, Post-operative pain, Hydronephrosis Instructions: ED Kidney Stone with Pain Prescriptions: New oxycodone-acetaminophen [Percocet] 5-325 mg tablet 1 - 2 tab PO Q6H PRN (Reason: pain) 3 Days Qty: 20 0RF No Action (DME) Accu-Chek Guide test strips Strip See Rx Instructions .ROUTE .MEDSUPPLY Rx Instructions: As directed Twice daily Complete Multivitamin Tablet 1 tab PO DAILY calcium carbonate-vitamin D3 [Calcium 600 + D(3)] 600 mg-10 mcg (400 unit) tablet 1 tab PO DAILY (DME) FreeStyle Suzy 14 Day [place] Misc See Rx Instructions .ROUTE .MEDSUPPLY Qty: 1 0RF Rx Instructions: As directed (DME) FreeStyle Suzy 14 Day Sensor Kit See Rx Instructions .ROUTE .MEDSUPPLY Qty: 1 7RF Rx Instructions: As directed oxycodone 5 mg Tablet 5 - 10 mg PO Q4H PRN PRN (Reason: Pain Score 4-10/10) 7 Days Qty: 15 0RF tamsulosin 0.4 mg capsule 0.4 mg PO DAILY (DME) lancets Misc See Rx Instructions .ROUTE .MEDSUPPLY Qty: 200 4RF Rx Instructions: Uses Accu-Chek guide Drum As directed Twice Daily (DME) Accu-Chek Guide test strips Strip See Rx Instructions .ROUTE .MEDSUPPLY Qty: 200 3RF Rx Instructions: Twice daily metformin 500 mg tablet 500 mg PO BID Qty: 180 1RF Primary Care Provider: Jessica Gage Referrals: Jessica Gage MD [Primary Care Provider] - As Needed Shai Luciano MD [Med Staff - Active Staff] - Keep Martha appointment Disposition Disposition: Home, Self Care
[2024-01-27 21:11] LABS: Absolute Lymphocyte Count 1.47 X10^3/uL (0.83-4.51); Absolute Neutrophil Count 5.8 X10^3/uL (2.0-7.7); Basophil# 0.03 X10^3/uL; Basophil% 0.4 % (0-1); Eosinophil# 0.14 X10^3/uL; Eosinophils% 1.7 % (0-5); Hemoglobin 12.9 g/dL (12.0-15.0); Lymphocyte # 1.47 X10^3/ul (0.83-4.51); Lymphocyte % 18.1 % (19-41); Mean Corp Hgb Conc 33.9 g/dL (32-36); Mean Corpuscular Hgb 29.9 pg (27.0-32.0); Mean Corpuscular Volume 88.2 fL (81-99); Mean Platelet Vol. 10.7 fl (6.2-12.0); Monocyte# 0.68 X10^3/uL; Monocyte% 8.4 % (0-10); NRBC Flagged by Analyzer 0 % (0-5); Neutrophil # 5.79 X10^3/uL (2.7-7.7); Neutrophil % 71.3 % (47-70); Platelet Count 157 K/mm3 (150-450); RBC Distribution Width CV 12.5 % (11.6-14.6); RBC Distribution Width SD 40.8 fl (35.1-43.9); Red Blood Count 4.31 M/mm3 (4.2-5.4); White Blood Count 8.1 K/mm3 (4.4-11.0)
[2024-01-27] MEDS: HYDROmorphone 1 MG/ML Syringe IV (21:16)
[2024-01-27] MEDS: Ondansetron 4 MG/2 ML Vial IV (21:16)
[2024-01-27] MEDS: 0.9% Normal Saline (1000mL) 1,000 ML 250 ML IV (21:17)
[2024-01-27 21:27] LABS: Anion Gap 6 (5-15); BUN 30 mg/dL (7-18); BUN/Creat Ratio 26.5 RATIO (10-20); Calcium,Total 8.6 mg/dL (8.5-10.1); Chloride 106 mmol/L (98-107); Creatinine, Serum 1.13 mg/dL (0.55-1.02); EST Glomerular Filtration Rate 51 mL/min (>60); Est Glom Filt Rate - Afr Amer 62 mL/min (>60); Estimated Creatinine Clearance 48.91 ml/min; Glucose 136 mg/dL (74-106); Lipase 52 U/L (13-75); Potassium 3.3 mmol/L (3.5-5.1); Sodium Level 138 mmol/L (136-145)
[2024-01-27 21:46] LABS: AST(SGOT) 33 U/L (15-37); Alanine Aminotransfer ALT/SGPT 62 U/L (13-56); Albumin, Serum 3.6 g/dL (3.2-5.0); Alkaline Phosphatase 124 U/L (45-117); Bilirubin, Direct 0.11 mg/dL (0.00-0.30); Globulin 3.1 g/dL (2.2-4.2); Protein, Total 6.7 g/dL (6.4-8.2)
[2024-01-27 21:51] LABS: Bacteria 0 SEEN /hpf (None Seen); Mucous, Urine 0 SEEN /hpf (<or=2+); Squamous Epithelial Cells - UA 0 SEEN /hpf (5-10)
[2024-01-27 21:57] LABS: Color, Urine Straw (Yellow); Glucose, Dipstick Normal (Normal); Ketone-Dipstick Negative (Negative); Leukocyte Esterase-Dipstick 500 /ul (Negative); Nitrite-Dipstick Negative (Negative); Occult Blood-Urine 250 /ul (Negative); Protein-Dipstick Negative (Negative); Urine Bilirubin Dipstick Negative (Negative); Urine Clarity Clear (Clear); Urine Urobilinogen Normal (Normal); Urine pH 6.5 (5.0 - 8.0)
[2024-01-27 22:04] LABS: Red Blood Cells-Urine 0-5 SEEN /hpf (0-5); White Blood Cells 0-5 SEEN /hpf (0-5)
[2024-01-27 22:41] VITALS: BP 110/60; PULSE 70; RESP 16; O2SAT 98
[2024-01-27 23:33] VITALS: BP 113/65; PULSE 74; RESP 16; TEMP 36.6; O2SAT 98
== END 2024-01-27 23:32 | disposition home or self-care (01) ==
PROVIDERS: Emergency Provider Emergency Medicine; PCP Internal Medicine; Visit Provider Emergency Medicine
DX: N13.2 Hydronephrosis with renal and ureteral calculous obstruction (principal); E11.9 Type 2 diabetes mellitus without complications; G89.18 Other acute postprocedural pain; Z79.84 Long term (current) use of oral hypoglycemic drugs; Z79.899 Other long term (current) drug therapy
CPT/HCPCS: 74176; 80048; 80076; 81001; 83690; 85025; 96361; 96374; 96375; 99283; J7030; A4216; J2405

== ENCOUNTER → 2024-04-29 | Outpatient (CLI) | payer MEDICARE, BC, SELFPAY ==
[2024-04-29 12:45] LABS: Anion Gap 6 (5-15); BUN 21 mg/dL (7-18); BUN/Creat Ratio 29.8 RATIO (10-20); Calcium,Total 9.4 mg/dL (8.5-10.1); Chloride 108 mmol/L (98-107); EST Glomerular Filtration Rate 89 mL/min (>60); Est Glom Filt Rate - Afr Amer 107 mL/min (>60); Glucose 102 mg/dL (74-106); Potassium 3.9 mmol/L (3.5-5.1); Sodium Level 142 mmol/L (136-145)
== END | disposition home or self-care (01) ==
LOC: BIMLAB 09:24
PROVIDERS: PCP Internal Medicine; Referring Provider Internal Medicine; Visit Provider Internal Medicine
DX: E11.9 Type 2 diabetes mellitus without complications (principal)
CPT/HCPCS: 36415; 80048

== ENCOUNTER → 2024-05-09 | Outpatient (CLI) | payer MEDICARE, BC, SELFPAY ==
--- NOTE | 2024-05-09 09:56 | BI_ITS ---
MAMMOGRAPHY - BILATERAL SCREENING REASON FOR EXAM: Female, 64 years old. Routine annual screening examination. PERTINENT HISTORY: Sister with breast cancer. Aunt with breast cancer. TECHNIQUE: Digital bilateral breast katie (3D mammographic acquisition) in the CC and MLO projections. 2-D mediolateral oblique (MLO) and craniocaudad (CC) views of both breasts were obtained. CAD: Full Field Digital Mammography with Computer Added Detection was performed. COMPARISON: Comparison is made with prior study March 29, 2023 and December 28, 2021. FINDINGS: Breast Composition: The breasts are heterogeneously dense, which may obscure small masses. There are no dominant masses or suspicious calcifications. No other significant abnormalities are identified. There has been no significant change since the prior study. BI/SCRN MAMM (CAD)W/KATIE BILAT IMPRESSION: Stable bilateral screening mammogram. Yearly follow-up mammogram recommended. (A) ASSESSMENT CATEGORY: BIRADS Category 1: Negative. A letter regarding these results will be sent to the patient by the facility within 30 days. Approximately 10% of breast cancers are not detected by mammography. A normal mammogram should not delay biopsy of a clinically suspicious abnormality. [id number] Electronically Signed: Taj Dhaliwal MD at 10:36 EDT ,
== END | disposition home or self-care (01) ==
LOC: OPBI 09:56
PROVIDERS: PCP Internal Medicine; Referring Provider Nurse Practitioner Women's Health; Visit Provider Nurse Practitioner Women's Health
DX: Z12.31 Encounter for screening mammogram for malignant neoplasm of breast (principal); Z80.3 Family history of malignant neoplasm of breast
CPT/HCPCS: 77063; 77067

== ENCOUNTER → 2024-10-30 | Outpatient (CLI) | payer MEDICARE, BC, SELFPAY ==
[2024-10-30 12:39] LABS: ALB/GLOB Ratio 1.2 RATIO (0.9-2.4); AST(SGOT) 22 U/L (15-37); Alanine Aminotransfer ALT/SGPT 30 U/L (13-56); Albumin, Serum 3.8 g/dL (3.2-5.0); Alkaline Phosphatase 95 U/L (45-117); Anion Gap 3 (5-15); BUN 22 mg/dL (7-18); BUN/Creat Ratio 25.6 RATIO (10-20); Calcium,Total 9.5 mg/dL (8.5-10.1); Chloride 109 mmol/L (98-107); Cholesterol 228 mg/dL (200); Creatinine, Serum 0.86 mg/dL (0.55-1.02); EST Glomerular Filtration Rate 70 mL/min (>60); Est Glom Filt Rate - Afr Amer 85 mL/min (>60); Globulin 3.2 g/dL (2.2-4.2); Glucose 110 mg/dL (74-106); High Density Lipoprotein 89 mg/dL; Sodium Level 142 mmol/L (136-145); Triglycerides 139 mg/dL; Very Low Density Lipoprotein 28 mg/dL (5-40)
[2024-10-30 13:10] LABS: Absolute Lymphocyte Count 1.02 X10^3/uL (0.83-4.51); Absolute Neutrophil Count 1.6 X10^3/uL (2.0-7.7); Basophil# 0.03 X10^3/uL; Eosinophil# 0.14 X10^3/uL; Eosinophils% 4.5 % (0-5); Hematocrit 41.5 % (37-47); Hemoglobin 14.2 g/dL (12.0-15.0); Lymphocyte # 1.02 X10^3/ul (0.83-4.51); Mean Corp Hgb Conc 34.2 g/dL (32-36); Mean Corpuscular Hgb 29.8 pg (27.0-32.0); Mean Platelet Vol. 11.7 fl (6.2-12.0); Monocyte% 9.7 % (0-10); NRBC Flagged by Analyzer 0 % (0-5); Neutrophil # 1.59 X10^3/uL (2.7-7.7); Neutrophil % 51.5 % (47-70); Platelet Count 182 K/mm3 (150-450); RBC Distribution Width CV 12.9 % (11.6-14.6); RBC Distribution Width SD 40.6 fl (35.1-43.9); Red Blood Count 4.77 M/mm3 (4.2-5.4); White Blood Count 3.1 K/mm3 (4.4-11.0)
== END | disposition home or self-care (01) ==
PROVIDERS: PCP Internal Medicine; Referring Provider Internal Medicine; Visit Provider Internal Medicine
DX: E78.5 Hyperlipidemia, unspecified (principal); E11.9 Type 2 diabetes mellitus without complications; M81.0 Age-related osteoporosis without current pathological fracture
CPT/HCPCS: 36415; 80053; 80061; 82306; 85025

== ENCOUNTER → 2025-06-05 | Outpatient (CLI) | payer MEDICARE, BC, SELFPAY ==
--- NOTE | 2025-06-05 15:20 | BD_ITS ---
PROCEDURE: DEXA BONE DENSITY STUDY 06/05/2025 REASON FOR EXAM: OSTEOPOROSIS F, age 65 y/o . Postmenopausal. TECHNIQUE: DEXA BONE DENSITY STUDY COMPARISON: Prior study dated October 19, 2022. FINDINGS: BMD and T-SCORES Lumbar spine: 0.750 g/cm2, T-score -2.8 Levels: -0.9 Change from prior: Improvement by 0.8%. Left femoral neck: 0.645 g/cm2, T-score -1.8 Femoral neck comparison data not recommended for monitoring change. Left total hip: 0.717 g/cm2, T-score -1.8 Change from prior: Loss of 2.6%. Right femoral neck: 0.602 g/cm2, T-score -2.2 Femoral neck comparison data not recommended for monitoring change. Right total hip: 0.700 g/cm2, T-score -2.0 Change from prior: Loss of 3%. The World Health Organization has defined the following categories based on bone density: Normal bone density: T-score equal to or greater than -1.0 Osteopenia: T-score between -1.0 and -2.5 Osteoporosis: T-score equal to or less than -2.5 The patient does meet the pharmacological treatment recommendations for prevention of osteoporosis. BD/Dexa Bone Density Study IMPRESSION: OSTEOPOROSIS. Recommend follow-up as clinically warranted. Reading Location: [place] [id number]
--- NOTE | 2025-06-05 15:20 | BI_ITS ---
EXAM: SCRN MAMM (CAD)W/KATIE BILAT DATE: 06/05/2025 CLINICAL HISTORY: F, Age 65 y/o , BREAST CANCER SCREENING TECHNIQUE: SCRN MAMM (CAD)W/KATIE BILAT COMPARISON: Prior exam(s) were compared FINDINGS: TISSUE DENSITY: The breasts are heterogeneously dense, which may obscure small masses. Bilateral Breast Mammographic Findings: No suspicious masses, calcifications or other abnormalities are identified. BI/SCRN MAMM (CAD)W/KATIE BILAT IMPRESSION: No mammographic evidence of malignancy in either breast OVERALL FINAL ASSESSMENT BI-RADS 1: NEGATIVE. RECOMMENDATION: Routine annual follow-up in 1 Year A letter with findings and recommendations will be mailed to the patient. Reading Location: [id number]
== END | disposition home or self-care (01) ==
LOC: OPBD 15:19
PROVIDERS: PCP Internal Medicine; Referring Provider Internal Medicine; Visit Provider Internal Medicine
DX: Z12.31 Encounter for screening mammogram for malignant neoplasm of breast (principal); M81.0 Age-related osteoporosis without current pathological fracture
CPT/HCPCS: 77063; 77067; 77080